=== PATIENT | female | born 1950 | race Caucasian/White ===

== ENCOUNTER 2017-03-15 19:28 | Inpatient (IN) ==
[2017-03-15 20:32] LABS: Basophils % 0.2 % (0.0-0.8); Eosinophils # 0.2 10*3/uL (0.0-0.87); Eosinophils % 1.3 % (0.00-10.9); Hemoglobin 9.9 GM/DL (12.0-16.0); Immature Granulocytes % 0.5 %; Immature Granulocytes Absolute 0.06 #; Lymphocytes # 1.3 10*3/uL (1.4-4.0); Lymphocytes % 11.2 % (21.3-54.2); Mean Corpuscular HGB Conc 31.9 GM/DL (32-36); Mean Corpuscular Hemoglobin 25 PG (27-34); Mean Corpuscular Volume 76.9 FL (87-102); Mean Platelet Volume 9.4 FL (9.6-12.0); Monocytes # 0.8 10*3/uL (0.11-0.8); Monocytes % 7.4 % (1.7-12.7); Neutrophils % 79.4 % (38.7-73.9); Platelet Count 270 T/CUMM (130-400); Red Blood Count 4.03 MC/CUMM (3.8-5.5); Red Cell Distribution Width 18.6 % (9.3-17.3); White Blood Count 11.3 T/CUMM (4-12)
[2017-03-15 20:50] LABS: Alanine Aminotransferase 14 U/L (13-56); Alkaline Phosphatase 81 U/L (45-117); Aspartate Amino Transferase 12 U/L (0-37); Bilirubin,Total < 0.39 MG/DL (0.2-1.0); Blood Urea Nitrogen 26 MG/DL (7-18); Calcium 9.2 MG/DL (8.5-10.1); Glucose 124 MG/DL (74-106); Osmolality,Calculated 284.4 MOS/KG (273-304); Potassium 4.9 MMOL/L (3.5-5.1); Sodium 140 MMOL/L (136-145); Total Protein 6.8 G/DL (6.4-8.3)
[2017-03-15 20:55] LABS: PT Patient Result 10.4 SECS
--- NOTE | 2017-03-15 21:19 | XRay Report ---
Exam: XR chest 2V Indication: Cough, fever Comparison study: Prior chest radiograph 11/18/2016 Findings: Cardiac silhouette is mildly enlarged, similar to prior. Diffuse interstitial prominence likely represent chronic scarring changes appear similar to prior. There has been interval partial resolution of right lung base airspace opacities with development of new patchy opacities which may resent developing infectious/inflammatory infiltrate/pneumonia. There is no pneumothorax. There is no significant pleural effusion. Osseous structures appear stable from prior. Impression: Similar cardiomegaly and chronic interstitial changes with suggestion of developing right basilar infectious/inflammatory infiltrate/pneumonia. PROCEDURE INTERPRETED AT [facility] DEPARTMENT OF RADIOLOGY Final Report Signed by: Jesús Huang
[2017-03-15] MEDS ORDERED: LEVOFLOXACIN INJ 500 MG in PREMIX 1 EACH IV STA (21:21)
[2017-03-15] MEDS ORDERED: SODIUM CHLORIDE 0.9% 1,000 ML IV STA (21:21)
[2017-03-15] MEDS ORDERED: LEVOFLOXACIN INJ 100 ML IV ONE (21:25)
[2017-03-15] MEDS ORDERED: ONDANSETRON 4 MG/2 ML VIAL IV PRN (21:47)
[2017-03-15] MEDS ORDERED: ALBUTEROL/IPRATROPIUM 3 ML NEB RESP TX PRN (21:47)
[2017-03-15] MEDS ORDERED: ACETAMINOPHEN 325 MG TABLET PO PRN ×2 (21:47→21:50)
[2017-03-15] MEDS ORDERED: SODIUM CHLORIDE 0.9% 1,000 ML IV SCH (22:00)
[2017-03-15] MEDS ORDERED: ENOXAPARIN 40 MG/0.4 ML SYRINGE SUBCUT SCH (22:00)
--- NOTE | 2017-03-15 22:01 | Emergency Department Note ---
Jamal Best Brooke, am scribing for, and in the presence of, Maggie Palomo DO 20:18. IStacia Whitney, DO, personally performed the services described in this documentation, ascribed by Desiree Berry in my presence, and it is both accurate and complete . Arrival - Arrival Chief Complaint: Upper Respiratory Stated Complaint: pneumonia right lung ED Nursing Triage Note: c/c body aches, chills, fever, non-productive cough started yesterday. Has hx of pneumonia Mode of Arrival: Wheelchair Limitations: No Limitations Source: Patient, RN Notes Reviewed Time Seen by Provider: 03/15/17 19:57 - History of Present Illness HPI Narrative: Patient is a 66 year old female who presents to the ED with c/o fever, right side pain, and cough that started three days ago. She has a history of pneumonia and says she "thinks" she has it again. Patient says she was hospitalized in September and November with pneumonia. Patient says she did not check her temperature, prior to arrival but her temperature during triage was 98.9. She says the right side pain is located "under my ribs." She denies having any chills, sore throat, rhinorrhea, vomiting, abdominal pain, diarrhea, and dysuria. Patient has an Albuterol inhaler, at home, that she started using yesterday. Patient also has PMHx of HTN, anxiety, ADHD, depression, CVA, thyroid disorder, fibromyalgia, psoriasis, COPD, chronic renal insufficiency, histoplasmosis, sarcodosis, GERD, bowel incontinence, bladder atrophy, osteo- arthritis, and osteopenia. She is not a smoker and does not drink alcohol. Patient says she is taking "life-long 200mg Diflucan abx due to meningitis." Onset (ago): day(s) (3) Allergies/Adverse Reactions: Allergies Allergy/AdvReac Type Severity Reaction Status Date / Time aripiprazole [From Abilify] AdvReac Severe sucicidal Verified 06/27/15 17:06 ideation pregabalin [From Lyrica] AdvReac Swelling Verified 03/15/17 19:44 of Lip/Tongue/Throat Home Medications: Home Medications Medication Instructions Recorded Confirmed Type Fluconazole 200 mg PO DAILY 06/27/15 03/15/17 History Levothyroxine Tab [Synthroid Tab] 100 mcg PO DAILY 06/27/15 03/15/17 History Lovastatin 20 mg PO DAILY W/SUPPER 06/27/15 03/15/17 History Mirtazapine 15 mg PO BEDTIME 06/27/15 03/15/17 History Ropinirole HCl 2 mg PO QAM 06/27/15 03/15/17 History Ropinirole HCl [Requip] 4 mg PO BEDTIME 06/27/15 03/15/17 History buPROPion SR [Wellbutrin Sr] 150 mg PO BID 06/27/15 03/15/17 History clonazePAM [Clonazepam] 1 mg PO BID 06/27/15 03/15/17 History Estradiol Tab [Estrace Tab] 2 mg PO DAILY 07/12/15 03/15/17 History Albuterol Sulfate [Ventolin HFA] 2 puff INH Q4H PRN 11/15/16 03/15/17 History Acetaminophen Tab [Tylenol Tab] 325 mg PO Q4H PRN #0 tablet 11/19/16 03/15/17 Rx Hydrocodone/Acetaminophen 1 each PO TID #20 tablet 11/19/16 03/15/17 Rx [Hydrocodon-Acetaminophn 10-325] Amlodipine Besylate [Amlodipine 5 mg PO DAILY 03/15/17 03/15/17 History Besylate] Biotin 10,000 mcg PO DAILY 03/15/17 03/15/17 History Furosemide Tab [Lasix Tab] 40 mg PO DAILY 03/15/17 03/15/17 History Losartan Potassium 50 mg PO DAILY 03/15/17 03/15/17 History Review of System - Review of System 12 point system: reviewed and no additional remarkable complaints except as stated - Review of System Constitutional: Present: fever. Absent: chills Head/Ears/Nose/Throat: Absent: nasal drainage, sore throat Respiratory: Present: cough. Absent: respiratory distress Gastrointestinal: Absent: abdominal pain, vomiting, diarrhea Genitourinary female: Absent: dysuria Musculoskeletal: Present: other (left side pain- under ribs) Skin: Absent: rash Medical,Surgical,& Family Hx - Medical History Cardio: History of: Hypertension Psychological: History of: Anxiety Disorders, ADHD (Attention), Depression Neurology: History of: Cerebrovascular Accident (2007) Comment Only: Dementia (memory loss from stroke) HEENT: History of: Eye Problem (Reaing glasses), Dental Problems (Full Set Dentures) Endocrine: History of: Thyroid Disorder Rheumatology: History of;: Fibromyalgia, Psoriasis Respiratory: History of: COPD, Pneumonia (2008-ventilator), Respiratory Problems (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 Kay;sarcoidosis) Renal: History of: Renal Problems (chronic renal insufficiency-65% due to antibiotics-Dr. Mendosa) Genitourinary: History of: Bladder Problem (bladder-sudden onset atrophy) Gastrointestinal: History of: GERD, GI Problems (bowel incontinence) No history of: Polyps Musculoskeletal: History of: Musculoskeletal Problems (Arthritis-OA; osteopenia) Other: No history of: Anesthesia Reactions, Cancer - Surgical History Abdominal Surgeries: Surgical HX of: Abdominal Surgery, Colonoscopy Reproductive Surgeries: Surgical HX of;: Breast Surgery (Rt Breast benign; watching lumb lt breast), Hysterectomy (Partial) Orthopedic Surgeries: Surgical HX of;: Total Knee Replacement - Family History Family History: Reports;: Family Cancer (Brother-Lung/bone/colon), Family Diabetes (Mother/brother), Family Heart Disease (Father), Family Hypertension ( Mother/Brother), Family Stroke (Grandfather) - Social History Smoking Status: Never smoker Frequency of Alcohol Use: None Type of Drug Use: None Exam Vital Signs: Vital Signs Temperature 98.9 F 03/15/17 19:37 Pulse Rate 94 H 03/15/17 19:37 Respiratory Rate 18 03/15/17 19:37 Blood Pressure 110/53 03/15/17 19:37 O2 Sat by Pulse Oximetry 99 03/15/17 19:37 - General General appearance: alert, in no apparent distress - Head Head exam: Present: atraumatic, normocephalic - Eye Eye exam: Present: normal appearance, PERRL, EOMI - ENT ENT exam: Present: normal exam - Neck Neck exam: Present: normal inspection - Chest Chest inspection: Present: normal inspection, symmetric chest wall rise - Respiratory Respiratory exam: Present: wheezes (mild- more on the right than left) - Cardiovascular Cardiovascular exam: Present: regular rate, normal rhythm, normal heart sounds - Abdominal Exam Abdominal exam: Present: soft, tenderness (Positive RUQ pain). Absent: distention - Extremities Exam Extremities exam: Present: normal inspection - Back Exam Back exam: Present: normal inspection - Neurological Exam Neurological exam: Present: alert, oriented X3 - Psychiatric Psychiatric exam: Present: normal affect, normal mood - Skin Skin exam: Present: warm, dry, intact, normal color, other (Feels warm-feverish) Course Course Narrative: initially thought that despite infiltrates would attempt to send home with antibiotics, however upon further evaluation of lab findings pt has GINA with Cr 1.6 that was not there previously and pt just looks sick. Will call hospitalist to admit while giving 1L bolus and levaquin IV. Results - Labs CBC & BMP: 03/15/17 20:18 03/15/17 20:18 Lab Results: I have reviewed the patients labs Labs: Laboratory Tests 03/15/17 03/15/17 03/15/17 20:18 20:18 20:18 WBC 11.3 RBC 4.03 Hgb 9.9 L Hct 31.0 L MCV 76.9 L MCH 25 L MCHC 31.9 L RDW 18.6 H Plt Count 270 MPV 9.4 L Neut % (Auto) 79.4 H Lymph % (Auto) 11.2 L Moody % (Auto) 7.4 Eos % (Auto) 1.3 Baso % (Auto) 0.2 Neut # (Auto) 9.0 H Lymph # (Auto) 1.3 L Moody # (Auto) 0.8 Eos # (Auto) 0.2 Baso # (Auto) 0.0 Immature Gran % 0.5 Nucleated RBC % 0.0 Immature Gran # 0.06 Nucleated RBCs # 0.00 INR 1.0 PT Patient/Control Mix 10.4 Sodium 140 Potassium 4.9 Chloride 106 Carbon Dioxide 27 Anion Gap 11.9 BUN 26 H Creatinine 1.60 H GFR Calculation 35 BUN/Creatinine Ratio 16.00 Glucose 124 H Calculated Osmolality 284.4 Calcium 9.2 Total Bilirubin < 0.39 AST 12 ALT 14 Alkaline Phosphatase 81 Total Protein 6.8 Albumin 3.0 L Globulin 3.8 H Albumin/Globulin Ratio 0.7 L - Diagnostic Findings Procedure: Chest x-ray: image reviewed by me (bilateral infiltrates) Disposition Clinical Impression: Pneumonia, GINA (acute kidney injury) Case discussed with: patient Disposition: Still a Patient Condition: Stable
--- NOTE | 2017-03-15 22:06 | Hospitalist History & Physical ---
Assessment and Plan (1) History of meningitis Status: Acute Current Visit: Yes (2) GINA (acute kidney injury) Status: Acute Current Visit: Yes (3) Pneumonia Status: Acute Current Visit: Yes (4) HTN (hypertension) Status: Acute Current Visit: No (5) Hypothyroidism Status: Acute Assessment and plan: Patient has recurrent pneumonias. We will start IV antibiotics draw blood cultures and breathing treatments as needed. Continue home meds as appropriate. She says her radio officer is Dr. Tate I will consult him for his evaluation of this patient. Repeat labs in the morning. Hopefully her creatinine will return to its baseline. Current Visit: No History of Present Illness Chief complaint: Cough and shortness of breath History of present illness: Ms. Carey is a 66 year old female with past medical history of current pneumonia , stroke, history of meningitis, who presents to our hospital with a chief complaint of cough and fever. She reports to me that the symptoms started 2 days ago. She relates a history of recurrent pneumonia and thought that she had it again. This was confirmed on x-ray. She said that her fever started today and that she came up to our hospital for further evaluation. She says that she has been having some right-sided pain under her ribs. I was consulted to admit her through the emergency room. Home Medications Medication Instructions Recorded Confirmed Type Fluconazole 200 mg PO DAILY 06/27/15 03/15/17 History Levothyroxine Tab [Synthroid Tab] 100 mcg PO DAILY 06/27/15 03/15/17 History Lovastatin 20 mg PO DAILY W/SUPPER 06/27/15 03/15/17 History Mirtazapine 15 mg PO BEDTIME 06/27/15 03/15/17 History Ropinirole HCl 2 mg PO QAM 06/27/15 03/15/17 History Ropinirole HCl [Requip] 4 mg PO BEDTIME 06/27/15 03/15/17 History buPROPion SR [Wellbutrin Sr] 150 mg PO BID 06/27/15 03/15/17 History clonazePAM [Clonazepam] 1 mg PO BID 06/27/15 03/15/17 History Estradiol Tab [Estrace Tab] 2 mg PO DAILY 07/12/15 03/15/17 History Albuterol Sulfate [Ventolin HFA] 2 puff INH Q4H PRN 11/15/16 03/15/17 History Acetaminophen Tab [Tylenol Tab] 325 mg PO Q4H PRN #0 tablet 11/19/16 03/15/17 Rx Hydrocodone/Acetaminophen 1 each PO TID #20 tablet 11/19/16 03/15/17 Rx [Hydrocodon-Acetaminophn 10-325] Amlodipine Besylate [Amlodipine 5 mg PO DAILY 03/15/17 03/15/17 History Besylate] Biotin 10,000 mcg PO DAILY 03/15/17 03/15/17 History Furosemide Tab [Lasix Tab] 40 mg PO DAILY 03/15/17 03/15/17 History Losartan Potassium 50 mg PO DAILY 03/15/17 03/15/17 History Allergies Allergy/AdvReac Type Severity Reaction Status Date / Time aripiprazole [From Abilify] AdvReac Severe sucicidal Verified 06/27/15 17:06 ideation pregabalin [From Lyrica] AdvReac Swelling Verified 03/15/17 19:44 of Lip/Tongue/Throat Medical,Surgical,& Family Hx - Medical History Cardio: History of: Hypertension Psychological: History of: Anxiety Disorders, ADHD (Attention), Depression Neurology: History of: Cerebrovascular Accident (2007) Comment Only: Dementia (memory loss from stroke) HEENT: History of: Eye Problem (Reaing glasses), Dental Problems (Full Set Dentures) Endocrine: History of: Thyroid Disorder Rheumatology: History of;: Fibromyalgia, Psoriasis Respiratory: History of: COPD, Pneumonia (2007-ventilator), Respiratory Problems (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 Kay;sarcoidosis) Renal: History of: Renal Problems (chronic renal insufficiency-65% due to antibiotics-Dr. Mendosa) Genitourinary: History of: Bladder Problem (bladder-sudden onset atrophy) Gastrointestinal: History of: GERD, GI Problems (bowel incontinence) No history of: Polyps Musculoskeletal: History of: Musculoskeletal Problems (Arthritis-OA; osteopenia) Other: No history of: Anesthesia Reactions, Cancer - Surgical History Abdominal Surgeries: Surgical HX of: Abdominal Surgery, Colonoscopy Reproductive Surgeries: Surgical HX of;: Breast Surgery (Rt Breast benign; watching lumb lt breast), Hysterectomy (Partial) Orthopedic Surgeries: Surgical HX of;: Total Knee Replacement - Family History Family History: Reports;: Family Cancer (Brother-Lung/bone/colon), Family Diabetes (Mother/brother), Family Heart Disease (Father), Family Hypertension ( Mother/Brother), Family Stroke (Grandfather) - Social History Smoking Status: Never smoker Frequency of Alcohol Use: None Type of Drug Use: None 12 point system: reviewed and no additional remarkable complaints except as stated Exam - Constitutional Vitals: Period Temp Pulse Resp BP Sys/Young Pulse Ox Last 24 Hr 98.9 F-98.9 F 94-94 18-18 110-110/52-53 99 - General General appearance: alert, in no apparent distress - Head Head exam: Present: atraumatic, normocephalic - Eye Eye exam: Present: normal appearance, PERRL, EOMI - ENT ENT exam: Present: normal exam - Neck Neck exam: Present: normal inspection - Chest Chest inspection: Present: normal inspection, symmetric chest wall rise - Respiratory Respiratory exam: Present: Mild wheezing on the right - Cardiovascular Cardiovascular exam: Present: regular rate, normal rhythm, normal heart sounds - Abdominal Exam Abdominal exam: Present: soft, non-tender - Extremities Exam Extremities exam: Present: normal inspection - Back Exam Back exam: Present: normal inspection - Neurological Exam Neurological exam: Present: alert, oriented X3 - Psychiatric Psychiatric exam: Present: normal affect, normal mood - Skin Skin exam: Present: warm, dry, intact, normal color, Results - Labs CBC & BMP: 03/15/17 20:18 03/15/17 20:18
[2017-03-15] MEDS: MIRTAZAPINE 15 MG TABLET PO SCH (22:59)
[2017-03-15] MEDS: rOPINIRole 4 MG TABLET PO SCH (22:59)
[2017-03-16 02:14] LABS: Basophils % 0.2 % (0.0-0.8); Eosinophils # 0.1 10*3/uL (0.0-0.87); Hematocrit 29.8 VOL% (35.7-47.0); Hemoglobin 9.4 GM/DL (12.0-16.0); Immature Granulocytes % 0.4 %; Immature Granulocytes Absolute 0.04 #; Lymphocytes # 1.5 10*3/uL (1.4-4.0); Lymphocytes % 15.9 % (21.3-54.2); Mean Corpuscular HGB Conc 31.5 GM/DL (32-36); Mean Corpuscular Hemoglobin 24 PG (27-34); Mean Corpuscular Volume 77.2 FL (87-102); Mean Platelet Volume 9.6 FL (9.6-12.0); Monocytes # 0.8 10*3/uL (0.11-0.8); Monocytes % 8.8 % (1.7-12.7); Neutrophils % 73.7 % (38.7-73.9); Platelet Count 250 T/CUMM (130-400); Red Blood Count 3.86 MC/CUMM (3.8-5.5); Red Cell Distribution Width 18.6 % (9.3-17.3); White Blood Count 9.5 T/CUMM (4-12)
[2017-03-16 03:05] LABS: Albumin 2.7 G/DL (3.4-5.0); Bilirubin,Total 0.5 MG/DL (0.2-1.0); Calcium 8.2 MG/DL (8.5-10.1); Osmolality,Calculated 285.1 MOS/KG (273-304); Potassium 4.7 MMOL/L (3.5-5.1); Total Protein 5.5 G/DL (6.4-8.3)
[2017-03-16] MEDS: LEVOTHYROXINE 100 MCG TABLET PO SCH (08:25)
[2017-03-16] MEDS: clonazePAM 0.5 MG TABLET PO SCH ×2 (08:25→20:23)
[2017-03-16] MEDS: buPROPion SR 150 MG TABLET PO SCH ×2 (08:25→20:23)
[2017-03-16] MEDS: FLUCONAZOLE 200 MG TABLET PO SCH (08:25)
[2017-03-16] MEDS: PANTOPRAZOLE 40 MG TABLET PO SCH (08:26)
[2017-03-16] MEDS: rOPINIRole 1 MG TABLET PO SCH (08:27)
[2017-03-16] MEDS ORDERED: ESTRADIOL 1 MG TABLET PO SCH (09:00)
[2017-03-16] MEDS ORDERED: FUROSEMIDE 40 MG/4 ML VIAL IV SCH (09:00)
[2017-03-16] MEDS ORDERED: LOSARTAN 50 MG TABLET PO SCH (09:00)
[2017-03-16] MEDS ORDERED: FUROSEMIDE 40 MG TABLET PO SCH (09:00)
[2017-03-16] MEDS ORDERED: amLODIPine 5 MG TABLET PO SCH (09:00)
--- NOTE | 2017-03-16 10:34 | Pulmonology Consult Note ---
Assessment and Plan (1) Sarcoidosis Status: Acute Assessment and plan: Remote history of sarcoid treated with prednisone for 6 months and felt to be in remission for at least 15 years. Will check an JAZMINE level but doubt she has recurrence. Current Visit: No (2) Histoplasmosis Status: Acute Assessment and plan: Needle biopsy of left long about 5 years ago showed histoplasma in the biopsy. Apparently was felt to be old disease and not treated at that time. Current Visit: No (3) Pneumonia Status: Acute Assessment and plan: Symptomatically it appears that she has a right middle and lower lobe bronchopneumonia. Agree with empiric antibiotics. I will likely plan bronchoscopy in a couple of days. Current Visit: Yes (4) History of meningitis Status: Acute Assessment and plan: Was treated for cryptococcal meningitis about 3 years ago. Again had problems with immunosuppression at that time from medications for psoriasis. Current Visit: Yes History of Present Illness Chief complaint: Fever right pleuritic pain cough History of present illness: Ms. Carey is a 66 year old female who has a history of sarcoid about 15 years ago treated for 6 months. Had a pulmonary nodule in the left lung with a biopsy about 5 years ago showing histoplasmosis but it was not treated was felt to be old disease. She also has had cryptococcal meningitis 3 years ago. She had been on immunosuppressive medications for psoriasis which she is off now. She comes in now with a cough and right-sided pleuritic pain white foamy sputum and fever. She is not a smoker. Home Medications Medication Instructions Recorded Confirmed Type Fluconazole 200 mg PO DAILY 06/27/15 03/15/17 History Levothyroxine Tab [Synthroid Tab] 100 mcg PO DAILY 06/27/15 03/15/17 History Lovastatin 20 mg PO DAILY W/SUPPER 06/27/15 03/15/17 History Mirtazapine 15 mg PO BEDTIME 06/27/15 03/15/17 History Ropinirole HCl 2 mg PO QAM 06/27/15 03/15/17 History Ropinirole HCl [Requip] 4 mg PO BEDTIME 06/27/15 03/15/17 History buPROPion SR [Wellbutrin Sr] 150 mg PO BID 06/27/15 03/15/17 History clonazePAM [Clonazepam] 1 mg PO BID 06/27/15 03/15/17 History Estradiol Tab [Estrace Tab] 2 mg PO DAILY 07/12/15 03/15/17 History Albuterol Sulfate [Ventolin HFA] 2 puff INH Q4H PRN 11/15/16 03/15/17 History Hydrocodone/Acetaminophen 1 each PO TID #20 tablet 11/19/16 03/15/17 Rx [Hydrocodon-Acetaminophn 10-325] Amlodipine Besylate [Amlodipine 5 mg PO DAILY 03/15/17 03/15/17 History Besylate] Biotin 10,000 mcg PO DAILY 03/15/17 03/15/17 History Esomeprazole Magnesium 1 each PO DAILY 03/15/17 03/15/17 History [Esomeprazole] Losartan Potassium 50 mg PO DAILY 03/15/17 03/15/17 History Allergies Allergy/AdvReac Type Severity Reaction Status Date / Time aripiprazole [From Abilify] AdvReac Severe sucicidal Verified 06/27/15 17:06 ideation pregabalin [From Lyrica] AdvReac Swelling Verified 03/15/17 19:44 of Lip/Tongue/Throat - Constitutional Constitutional: Present: fever(s) - Respiratory Respiratory: Present: cough, dyspnea, pain on inspiration Exam (Pulmonay) H&P - Constitutional Vitals: Period Temp Pulse Resp BP Sys/Young Pulse Ox Last 24 Hr 98.3 F-100.2 F 74-94 18-74 90-116/40-54 92-99 Exam: Patient is alert. Maximum temperature 99.4. Pupils react to light. Throat is clear. Neck supple no bruits. Chest reveals some rhonchi and musical rhonchi over the right lower lobe and right middle lobe. Heart normal rate rhythm no murmurs no rubs or gallops. Abdomen soft nontender no masses. Extremities no clubbing cyanosis or edema. Calves nontender. Medical,Surgical,& Family Hx - Medical History Cardio: History of: Hypertension Psychological: History of: Anxiety Disorders, ADHD (Attention), Depression Neurology: History of: Cerebrovascular Accident (2007) Comment Only: Dementia (memory loss from stroke) HEENT: History of: Eye Problem (Reaing glasses), Dental Problems (Full Set Dentures) Endocrine: History of: Thyroid Disorder Rheumatology: History of;: Fibromyalgia, Psoriasis Respiratory: History of: COPD, Pneumonia (2008-ventilator), Respiratory Problems (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 Kay;sarcoidosis) Renal: History of: Renal Problems (chronic renal insufficiency-65% due to antibiotics-Dr. Mendosa) Genitourinary: History of: Bladder Problem (bladder-sudden onset atrophy) Gastrointestinal: History of: GERD, GI Problems (bowel incontinence) No history of: Polyps Musculoskeletal: History of: Musculoskeletal Problems (Arthritis-OA; osteopenia) Other: No history of: Anesthesia Reactions, Cancer - Surgical History Abdominal Surgeries: Surgical HX of: Abdominal Surgery, Colonoscopy Reproductive Surgeries: Surgical HX of;: Breast Surgery (Rt Breast benign; watching lumb lt breast), Hysterectomy (Partial) Orthopedic Surgeries: Surgical HX of;: Total Knee Replacement - Family History Family History: Reports;: Family Cancer (Brother-Lung/bone/colon), Family Diabetes (Mother/brother), Family Heart Disease (Father), Family Hypertension ( Mother/Brother), Family Stroke (Grandfather) - Social History Smoking Status: Never smoker Frequency of Alcohol Use: None Type of Drug Use: None Results - Labs CBC & BMP: 03/16/17 01:43 03/16/17 01:43 Lab Results: I have reviewed the past 24 hour labs - Diagnostic Findings Procedure: Chest x-ray: image reviewed by me (Infiltrate in right middle and lower lobes. Similar location to previous infiltrates.)
[2017-03-16] MEDS: ALBUTEROL/IPRATROPIUM 3 ML NEB RESP TX SCH ×4 (11:30→23:51)
[2017-03-16] MEDS ORDERED: LOVASTATIN 20 MG TABLET ONE (13:48)
[2017-03-16] MEDS: LOVASTATIN 20 MG TABLET PO SCH (15:59)
--- NOTE | 2017-03-16 16:36 | Infectious Disease Consult ---
Assessment and Plan (1) Pneumonia Status: Acute Assessment and plan: Pneumonia involving right lung lower lobe. Likely community-acquired. Recommendations: Agree with empiric levofloxacin. If able to get sample, we she should do Gram stain and culture on sputum. Otherwise bronchoscopy may be needed in addition to regular Gram stain and culture should do fungal and AFB stains and cultures. Thank you very much for the consult. Will follow. Current Visit: Yes (2) ARF (acute renal failure) Status: Acute Assessment and plan: 's improving since admission. Continue to monitor. Current Visit: No (3) HTN (hypertension) Status: Acute Current Visit: No (4) History of meningitis Status: Acute Assessment and plan: The meningitis is due to cryptococcus. She will remain on secondary prophylaxis with fluconazole. Current Visit: Yes History of Present Illness Chief complaint: Pneumonia History of present illness: Ms. Carey is a 66 year old female Who has a history of recurring pneumonia presented yesterday with onset of fever on the night before admission. She also noted at the same time pleuritic right-sided chest pain. She is having mild cough but no sputum production. Because of her history of recurrent pneumonia she presented to the hospital and a new right-sided infiltrate was noted in the lung. The patient was started on empiric antibiotic therapy and says she feels a bit better today. The patient have seen in the past because of her history of cryptococcal meningitis. She was on immunosuppressive so sometime for psoriatic arthritis and then got meningitis due to cryptococcus. She was treated in hospital for 5 months she says and then has been on suppressive therapy with fluconazole for the past 3 years. 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 Home Medications Medication Instructions Recorded Confirmed Type Fluconazole 200 mg PO DAILY 06/27/15 03/15/17 History Levothyroxine Tab [Synthroid Tab] 100 mcg PO DAILY 06/27/15 03/15/17 History Lovastatin 20 mg PO DAILY W/SUPPER 06/27/15 03/15/17 History Mirtazapine 15 mg PO BEDTIME 06/27/15 03/15/17 History Ropinirole HCl 2 mg PO QAM 06/27/15 03/15/17 History Ropinirole HCl [Requip] 4 mg PO BEDTIME 06/27/15 03/15/17 History buPROPion SR [Wellbutrin Sr] 150 mg PO BID 06/27/15 03/15/17 History clonazePAM [Clonazepam] 1 mg PO BID 06/27/15 03/15/17 History Estradiol Tab [Estrace Tab] 2 mg PO DAILY 07/12/15 03/15/17 History Albuterol Sulfate [Ventolin HFA] 2 puff INH Q4H PRN 11/15/16 03/15/17 History Hydrocodone/Acetaminophen 1 each PO TID #20 tablet 11/19/16 03/15/17 Rx [Hydrocodon-Acetaminophn 10-325] Amlodipine Besylate [Amlodipine 5 mg PO DAILY 03/15/17 03/15/17 History Besylate] Biotin 10,000 mcg PO DAILY 03/15/17 03/15/17 History Esomeprazole Magnesium 1 each PO DAILY 03/15/17 03/15/17 History [Esomeprazole] Losartan Potassium 50 mg PO DAILY 03/15/17 03/15/17 History Allergies Allergy/AdvReac Type Severity Reaction Status Date / Time aripiprazole [From Abilify] AdvReac Severe sucicidal Verified 06/27/15 17:06 ideation pregabalin [From Lyrica] AdvReac Swelling Verified 03/15/17 19:44 of Lip/Tongue/Throat 12 point system: reviewed and no additional remarkable complaints except as stated (Per HPI) Medical,Surgical,& Family Hx - Medical History Cardio: History of: Hypertension Psychological: History of: Anxiety Disorders, ADHD (Attention), Depression Neurology: History of: Cerebrovascular Accident (2007) Comment Only: Dementia (memory loss from stroke) HEENT: History of: Eye Problem (Reaing glasses), Dental Problems (Full Set Dentures) Endocrine: History of: Thyroid Disorder Rheumatology: History of;: Fibromyalgia, Psoriasis Respiratory: History of: COPD, Pneumonia (2008-ventilator), Respiratory Problems (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 Kay;sarcoidosis) Renal: History of: Renal Problems (chronic renal insufficiency-65% due to antibiotics-Dr. Mendosa) Genitourinary: History of: Bladder Problem (bladder-sudden onset atrophy) Gastrointestinal: History of: GERD, GI Problems (bowel incontinence) No history of: Polyps Musculoskeletal: History of: Musculoskeletal Problems (Arthritis-OA; osteopenia) Other: No history of: Anesthesia Reactions, Cancer - Surgical History Abdominal Surgeries: Surgical HX of: Abdominal Surgery, Colonoscopy Reproductive Surgeries: Surgical HX of;: Breast Surgery (Rt Breast benign; watching lumb lt breast), Hysterectomy (Partial) Orthopedic Surgeries: Surgical HX of;: Total Knee Replacement - Family History Family History: Reports;: Family Cancer (Brother-Lung/bone/colon), Family Diabetes (Mother/brother), Family Heart Disease (Father), Family Hypertension ( Mother/Brother), Family Stroke (Grandfather) - Social History Smoking Status: Never smoker Frequency of Alcohol Use: None Type of Drug Use: None Infectious Disease Exam H&P - Constitutional Vitals: Vital Signs Temp Pulse Resp BP Pulse Ox 97.4 F L 69 18 107/53 98 03/16/17 11:18 03/16/17 11:30 03/16/17 11:30 03/16/17 11:18 03/16/17 11:30 Intake and Output 03/16/17 03/16/17 03/16/17 07:59 15:59 23:59 Intake Total 300 / 300 Output Total 600 / 600 Balance -300 / -300 Intake: Oral 300 / 300 Output: Urine 600 / 600 Other: Voiding Method Toilet # Bowel Movements 0 Exam: General: Patient relatively comfortable HEENT: Mucous membranes pink and moist, anicteric acyanotic, JAE, no oropharyngeal exudates Neck: Supple, no thyroid gland enlargement Respiratory system: Breath sounds vesicular, I did not hear any crepitations but occasional wheezes in both bases Cardiovascular: Normal S1 and S2, no murmurs appreciated Abdomen: Normal bowel sounds, soft nontender throughout, no organomegaly or mass Genitourinary: No suprapubic pain or bladder distention Extremities: no edema Skin: No rash Reports - Labs CBC & BMP: 03/16/17 01:43 03/16/17 01:43 Labs: Laboratory Results - last 24 hr 03/15/17 03/15/17 03/15/17 20:18 20:18 20:18 WBC 11.3 RBC 4.03 Hgb 9.9 L Hct 31.0 L MCV 76.9 L MCH 25 L MCHC 31.9 L RDW 18.6 H Plt Count 270 MPV 9.4 L Neut % (Auto) 79.4 H Lymph % (Auto) 11.2 L [place] % (Auto) 7.4 Eos % (Auto) 1.3 Baso % (Auto) 0.2 Neut # (Auto) 9.0 H Lymph # (Auto) 1.3 L [place] # (Auto) 0.8 Eos # (Auto) 0.2 Baso # (Auto) 0.0 Immature Gran % 0.5 Nucleated RBC % 0.0 Immature Gran # 0.06 Nucleated RBCs # 0.00 INR 1.0 PT Patient/Control Mix 10.4 Sodium 140 Potassium 4.9 Chloride 106 Carbon Dioxide 27 Anion Gap 11.9 BUN 26 H Creatinine 1.60 H GFR Calculation 35 BUN/Creatinine Ratio 16.00 Glucose 124 H Calculated Osmolality 284.4 Calcium 9.2 Total Bilirubin < 0.39 AST 12 ALT 14 Alkaline Phosphatase 81 Total Protein 6.8 Albumin 3.0 L Globulin 3.8 H Albumin/Globulin Ratio 0.7 L 03/16/17 03/16/17 01:43 01:43 WBC 9.5 RBC 3.86 Hgb 9.4 L Hct 29.8 L MCV 77.2 L MCH 24 L MCHC 31.5 L RDW 18.6 H Plt Count 250 MPV 9.6 Neut % (Auto) 73.7 Lymph % (Auto) 15.9 L [place] % (Auto) 8.8 Eos % (Auto) 1.0 Baso % (Auto) 0.2 Neut # (Auto) 7.0 Lymph # (Auto) 1.5 [place] # (Auto) 0.8 Eos # (Auto) 0.1 Baso # (Auto) 0.0 Immature Gran % 0.4 Nucleated RBC % 0.0 Immature Gran # 0.04 Nucleated RBCs # 0.00 INR PT Patient/Control Mix Sodium 142 Potassium 4.7 Chloride 108 H Carbon Dioxide 24 Anion Gap 14.7 BUN 21 H Creatinine 1.40 H GFR Calculation 42 BUN/Creatinine Ratio 15.00 Glucose 94 Calculated Osmolality 285.1 Calcium 8.2 L Total Bilirubin 0.50 AST 14 ALT 12 L Alkaline Phosphatase 76 Total Protein 5.5 L Albumin 2.7 L Globulin 2.8 Albumin/Globulin Ratio 0.9 L - Diagnostic Findings Procedure: Chest x-ray: image reviewed by me, report reviewed by me (Infiltrate in the right lower lung)
--- NOTE | 2017-03-16 17:41 | Hospitalist Progress Note ---
Assessment and Plan (1) Community acquired pneumonia Status: Acute Assessment and plan: Chest x-ray shows a right lower lobe pneumonia, continue Levaquin, Dr. Valencia consulted and recommends bronchoscopy. Dr. Tate will do bronchoscopy in a.m. Patient reports a history of histoplasmosis Current Visit: No (2) ARF (acute renal failure) Status: Acute Assessment and plan: more chronic renal failure, chronic stage 3 renal failure Current Visit: No (3) HTN (hypertension) Status: Acute Assessment and plan: blood pressure running low, hold norvasc and losartan Current Visit: No (4) Histoplasmosis Status: Acute Current Visit: No (5) Hypothyroidism Status: Acute Assessment and plan: cont levothyroxine. Current Visit: No Hospitalist: Subjective Interval history: Patient sounded wet this morning when I saw her. Dr. Tate was consulted and he actually consulted Dr. Valencia. Dr. Valencia feels that she needs a bronchoscopy with antifungal cx. Have spoke with Dr. Tate and he will do the bronchoscopy in the morning. Patient reports a history of histoplasmosis. Currently she is only on Levaquin. at bedside. I heplocked her fluids. Blood pressure low, will hold norvasc and losartan Exam - Constitutional Vitals: Period Temp Pulse Resp BP Sys/Young Pulse Ox Last 24 Hr 97.4 F-100.2 F 69-94 18-74 90-116/40-54 92-99 Exam: Heart Rate-[RRR] Lungs-[bilateral rhonchi, crackles] GI-[+bs soft, NT] Ext-[no edema] Neuro [Motor 5/5], [alert and oriented times 3] psych [normal mood and affect] General [no acute distress] Results - Labs CBC & BMP: 03/16/17 01:43 03/16/17 01:43 Lab Results: I have reviewed the past 24 hour labs - Diagnostic Findings Procedure: Chest x-ray: report reviewed by me (Right lower lobe pneumonia)
[2017-03-16] MEDS: LEVOFLOXACIN INJ 500 MG in PREMIX 1 EACH IV SCH (18:37)
[2017-03-16] MEDS: rOPINIRole 4 MG TABLET PO SCH (20:23)
[2017-03-16] MEDS: MIRTAZAPINE 15 MG TABLET PO SCH (20:24)
[2017-03-16] MEDS ORDERED: LEVOFLOXACIN INJ 250 MG in PREMIX 1 EACH IV SCH (21:00)
[2017-03-17 02:06] LABS: Apearance,Urine CLOUDY (Clear); Bacteria,Urine Moderate /HPF (Few); Bilirubin,Urine Negative (Negative); Blood, Urine Negative (Negative); Glucose,Urine (UA) Negative (Negative); Ketones,Urine Negative (Negative); Mucus,Urine Occasional /LPF (Occasional); Nitrite,Urine Negative (Negative); Protein,Urine Negative; Squamous Epithelial Cell,Urine Occasional /HPF (0-10); Urine Color Red (Yellow); Urine Specific Gravity 1.006 (1.001-1.035); Urine Urobilinogen < 2.0 EU/DL (0.2-1.0); WBC,Urine <1 /HPF (0-6)
[2017-03-17] MEDS: ALBUTEROL/IPRATROPIUM 3 ML NEB RESP TX SCH ×6 (04:04→23:11)
[2017-03-17 06:32] LABS: Basophils % 0.2 % (0.0-0.8); Eosinophils # 0.2 10*3/uL (0.0-0.87); Eosinophils % 3.4 % (0.00-10.9); Hematocrit 27.8 VOL% (35.7-47.0); Hemoglobin 8.7 GM/DL (12.0-16.0); Immature Granulocytes % 0.5 %; Immature Granulocytes Absolute 0.03 #; Lymphocytes # 1.3 10*3/uL (1.4-4.0); Lymphocytes % 21.8 % (21.3-54.2); Mean Corpuscular HGB Conc 31.3 GM/DL (32-36); Mean Corpuscular Hemoglobin 24 PG (27-34); Mean Corpuscular Volume 77.4 FL (87-102); Mean Platelet Volume 9.6 FL (9.6-12.0); Monocytes # 0.6 10*3/uL (0.11-0.8); Monocytes % 9.7 % (1.7-12.7); Neutrophils # 3.9 10*3/uL (1.4-7.4); Neutrophils % 64.4 % (38.7-73.9); Platelet Count 236 T/CUMM (130-400); Red Blood Count 3.59 MC/CUMM (3.8-5.5); Red Cell Distribution Width 18.6 % (9.3-17.3)
[2017-03-17] MEDS ORDERED: MEPERIDINE 50 MG/1 ML VIAL IM ONE (07:00)
[2017-03-17] MEDS ORDERED: PROMETHAZINE 25 MG/1 ML VIAL IM ONE (07:00)
[2017-03-17] MEDS ORDERED: MIDAZOLAM 2 MG/2 ML VIAL IV ONE (07:00)
[2017-03-17] MEDS ORDERED: LIDOCAINE 1% 20 ML VIAL MISC INJ ONE (07:00)
[2017-03-17 07:03] LABS: Calcium 8.7 MG/DL (8.5-10.1); Potassium 3.9 MMOL/L (3.5-5.1)
--- NOTE | 2017-03-17 07:10 | Pulmonology Progress Note ---
Pulmonary - PN: Subj Interval history: This 66-year-old white female has recurrent right middle lobe pneumonia. She has a remote history of sarcoid. She has had 2 different fungal infections. Infectious disease has seen her yesterday and asked that we get some samples from along. I will proceed with bronchoscopy this morning. I discussed the procedure and complications with the patient this morning. Exam (Progress Note) - Constitutional Vitals: Period Temp Pulse Resp BP Sys/Young Pulse Ox Last 24 Hr 97.4 F-98.7 F 66-90 16-22 91-114/47-57 96-100 Exam: Patient's alert oriented vital signs normal. Pupils react to light. Throat is clear. Neck supple no bruits. Chest reveals some rhonchi over the right middle lobe. Heart normal rate rhythm no murmurs. Abdomen soft no masses. Extremities no clubbing cyanosis edema. Calves nontender. Results - Labs CBC & BMP: 03/17/17 06:08 03/17/17 06:08 Lab Results: I have reviewed the past 24 hour labs Assessment and Plan (1) Sarcoidosis Status: Acute Assessment and plan: Remote history of sarcoid treated with prednisone for 6 months and felt to be in remission for at least 15 years. Will check an JAZMINE level but doubt she has recurrence. 03/17/2017 remote history of sarcoid. Probably not active. Current Visit: No (2) Histoplasmosis Status: Acute Assessment and plan: Needle biopsy of left long about 5 years ago showed histoplasma in the biopsy. Apparently was felt to be old disease and not treated at that time. 03/17/2017 remote history of histoplasmosis. Current Visit: No (3) Pneumonia Status: Acute Assessment and plan: Symptomatically it appears that she has a right middle and lower lobe bronchopneumonia. Agree with empiric antibiotics. I will likely plan bronchoscopy in a couple of days. 03/17/2017 recurrent right middle lobe pneumonia. Plan bronchoscopy to see what the etiologic agent is. Current Visit: Yes (4) History of meningitis Status: Acute Assessment and plan: Was treated for cryptococcal meningitis about 3 years ago. Again had problems with immunosuppression at that time from medications for psoriasis. Current Visit: Yes
[2017-03-17] MEDS ORDERED: MIDAZOLAM 2 MG/2 ML VIAL ONE (07:13)
--- NOTE | 2017-03-17 07:54 | Operative Note ---
Date of procedure: 03/17/17 (Fiberoptic bronchoscopy with brushings from right middle lobe and right lower lobe) Pre-op diagnosis: Recurrent right middle and lower lobe pneumonia, history of histoplasmosis Post-op diagnosis: same Procedure: Patient was given preoperative medication intramuscularly on the floor. I discussed the procedure with her prior to that. She was brought to the endoscopy suite. An appropriate timeout was taken to be sure we were dealing with Ghazal Carey. Topical anesthesia was applied with Xylocaine in the nose and nasopharynx. 3 L of nasal oxygen was placed in the left naris. Patient was given 2 mg of Versed intravenously to the point of sedation. The fiberoptic bronchoscope was introduced via the right naris. The vocal cords were identified and noted to function normally with phonation. After further topical anesthesia the trachea was entered and was free of lesions. The honey was sharp. The left lung was carefully inspected to the subsegmental level with no lesions seen. There was a slightly thickened divider between the anterior and posterior segments of the left upper lobe. On the right side the right upper lobe was normal. The right middle lobe was narrowed from front to back. I was not able to see the divisions of the right middle lobe. Brushings were obtained from 3 different locations in the right middle lobe. 1 of the brushings will be sent for Gram stain AFB stain and fungal stain and cultures. The other 2 will be sent for cytology. There was mild bleeding which cleared easily with saline irrigation. In the right lower lobe the anterior basilar segment was somewhat narrowed with purulent secretions. Saline irrigation was undertaken to remove the purulent secretions. Brushings were then obtained from the anterior basilar segment. Minimal bleeding following that cleared with saline irrigation. Additional bronchial washings were obtained. The bronchoscope was removed. Patient returned to her room in stable condition. I discussed the case with the patient's on the phone. Anesthesia: conscious sedation Surgeon / Physician: Devante Tate Estimated blood loss: minimal Specimens: other (Bronchial washings and brushings for cultures and cytology) Condition: stable Disposition: floor Results - Labs CBC & BMP: 03/17/17 06:08 03/17/17 06:08 Discharge Plan - Discharge Medications No Action Fluconazole 200 mg PO DAILY buPROPion SR [Wellbutrin Sr] 150 mg PO BID Levothyroxine Tab [Synthroid Tab] 100 mcg PO DAILY Ropinirole HCl 2 mg PO QAM Ropinirole HCl [Requip] 4 mg PO BEDTIME Mirtazapine 15 mg PO BEDTIME clonazePAM [Clonazepam] 1 mg PO BID Lovastatin 20 mg PO DAILY W/SUPPER Estradiol Tab [Estrace Tab] 2 mg PO DAILY Albuterol Sulfate [Ventolin HFA] 2 puff INH Q4H PRN PRN Reason: Shortness Of Breath/Wheezing Amlodipine Besylate [Amlodipine Besylate] 5 mg PO DAILY Biotin 10,000 mcg PO DAILY Hydrocodone/Acetaminophen [Hydrocodon-Acetaminophn 10-325] 1 each PO TID #20 tablet Losartan Potassium 50 mg PO DAILY Esomeprazole Magnesium [Esomeprazole] 1 each PO DAILY - Follow Up or Referral - Forms/Instructions
--- NOTE | 2017-03-17 09:21 | Infectious Disease Progress ---
Assessment and Plan (1) Pneumonia Status: Acute Assessment and plan: Pneumonia involving right lung lower lobe. Likely community-acquired. But she has had history of histoplasmoma pulmonary infection in the past. Recommendations: Continue empiric levofloxacin. Follow-up on BAL culture sent off today. I ordered urine histoplasma antigen. Current Visit: Yes (2) ARF (acute renal failure) Status: Acute Assessment and plan: 's improving since admission. Continue to monitor. 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 She will remain on secondary prophylaxis with fluconazole. Current Visit: Yes Infectious Disease - PN: Subj Interval history: Patient coughing a bit more today, whitish thin sputum. She has not had fever. No nausea vomiting or diarrhea. Had bronchoscopy today. Infectious Disease Exam (PN) - Constitutional Vitals: Temp Pulse Resp BP Pulse Ox 97.6 F 79 16 110/65 97 03/17/17 03:52 03/17/17 08:03 03/17/17 08:03 03/17/17 08:03 03/17/17 08:03 Exam: General appearance: Episodic coughing - Eye Eye exam: Present: EOMI. no icterus Pupils: Present: JAE - ENT ENT exam: no oral exudates - Respiratory Respiratory exam: vesicular BS, no crepitations but diffuse inspiratory wheezes heard - Cardiovascular Cardiovascular exam: regular rate and rhythm, no murmurs - GI/Abdominal GI/Abdominal exam: normal bowel sounds, soft, non-tender, no organomegaly or mass - Extremities Exam Extremities exam: no edema - Skin Skin exam: no rash Results - Labs CBC & BMP: 03/17/17 06:08 03/17/17 06:08 Lab Results: I have reviewed the past 24 hour labs
[2017-03-17] MEDS: PANTOPRAZOLE 40 MG TABLET PO SCH (09:42)
[2017-03-17] MEDS: clonazePAM 0.5 MG TABLET PO SCH ×2 (09:42→20:50)
[2017-03-17] MEDS: buPROPion SR 150 MG TABLET PO SCH ×2 (09:42→20:50)
[2017-03-17] MEDS: FLUCONAZOLE 200 MG TABLET PO SCH (09:42)
[2017-03-17] MEDS: LEVOTHYROXINE 100 MCG TABLET PO SCH (09:42)
[2017-03-17] MEDS: rOPINIRole 1 MG TABLET PO SCH (09:42)
--- NOTE | 2017-03-17 16:00 | Hospitalist Progress Note ---
Assessment and Plan (1) Community acquired pneumonia Status: Acute Assessment and plan: Dr. Tate and Dr. Valencia following. Urine for histoplasma antigen order. Awaiting results of bronchoscopy Current Visit: No (2) ARF (acute renal failure) Status: Acute Assessment and plan: chronic stage 3 renal failure Current Visit: No (3) HTN (hypertension) Status: Acute Assessment and plan: blood continues to run low normal saline bolus 500 cc will hold Requip. Current Visit: No (4) Histoplasmosis Status: Acute Assessment and plan: Bronchoscopy cultures pending Current Visit: No (5) Hypothyroidism Status: Acute Assessment and plan: cont levothyroxine. Current Visit: No Hospitalist: Subjective Interval history: Patient feeling better today, patient had a bronchoscopy today and tolerated it well. Exam - Constitutional Vitals: Period Temp Pulse Resp BP Sys/Young Pulse Ox Last 24 Hr 97.6 F-98.7 F 65-90 11-20 84-122/49-72 95-100 Exam: Heart Rate-[RRR] Lungs-[clear few wheezes GI-[+bs soft, NT] Ext-[no edema] Neuro [Motor 5/5], [alert and oriented times 3] psych [normal mood and affect] General [no acute distress] Results - Labs CBC & BMP: 03/17/17 06:08 03/17/17 06:08 Lab Results: I have reviewed the past 24 hour labs Labs: Bronchoscopy acid-fast bacilli negative, Gram stain negative, no fungal elements seen, blood cultures 2 negative
[2017-03-17] MEDS: LOVASTATIN 20 MG TABLET PO SCH (16:02)
[2017-03-17] MEDS ORDERED: SODIUM CHLORIDE 0.9% 500 ML IV ONE (16:02)
[2017-03-17] MEDS: LEVOFLOXACIN INJ 500 MG in PREMIX 1 EACH IV SCH (17:11)
[2017-03-17] MEDS: MIRTAZAPINE 15 MG TABLET PO SCH (20:50)
[2017-03-18] MEDS: ALBUTEROL/IPRATROPIUM 3 ML NEB RESP TX SCH ×6 (02:47→23:50)
[2017-03-18 07:01] LABS: Basophils % 0.3 % (0.0-0.8); Eosinophils # 0.2 10*3/uL (0.0-0.87); Eosinophils % 5.9 % (0.00-10.9); Hematocrit 26.3 VOL% (35.7-47.0); Immature Granulocytes % 0.3 %; Immature Granulocytes Absolute 0.01 #; Lymphocytes % 25.8 % (21.3-54.2); Mean Corpuscular HGB Conc 30.4 GM/DL (32-36); Mean Corpuscular Hemoglobin 24 PG (27-34); Mean Platelet Volume 9.2 FL (9.6-12.0); Monocytes # 0.4 10*3/uL (0.11-0.8); Monocytes % 9.5 % (1.7-12.7); Neutrophils # 2.3 10*3/uL (1.4-7.4); Neutrophils % 58.2 % (38.7-73.9); Platelet Count 232 T/CUMM (130-400); Red Blood Count 3.33 MC/CUMM (3.8-5.5); Red Cell Distribution Width 18.6 % (9.3-17.3); White Blood Count 3.9 T/CUMM (4-12)
[2017-03-18 07:32] LABS: Calcium 9.1 MG/DL (8.5-10.1); Osmolality,Calculated 291.6 MOS/KG (273-304); Potassium 4.3 MMOL/L (3.5-5.1)
[2017-03-18] MEDS: clonazePAM 0.5 MG TABLET PO SCH ×2 (09:09→20:12)
[2017-03-18] MEDS: FLUCONAZOLE 200 MG TABLET PO SCH (09:09)
[2017-03-18] MEDS: LEVOTHYROXINE 100 MCG TABLET PO SCH (09:09)
[2017-03-18] MEDS: PANTOPRAZOLE 40 MG TABLET PO SCH (09:09)
[2017-03-18] MEDS: buPROPion SR 150 MG TABLET PO SCH ×2 (09:09→20:12)
--- NOTE | 2017-03-18 09:58 | Pulmonology Progress Note ---
Pulmonary - PN: Subj Interval history: This 66-year-old white female has recurrent right middle lobe pneumonia. She has a remote history of sarcoid. She has had 2 different fungal infections. Infectious disease has seen her yesterday and asked that we get some samples from along. I will proceed with bronchoscopy this morning. I discussed the procedure and complications with the patient this morning. 03/18/2017 patient is feeling better. Not requiring oxygen. Still having some right pleuritic pain. Her says that she usually gets these episodes when she aspirates. She is alert. She does have some reflux symptoms. It may be microaspiration but I do not think she is grossly aspirating. In any rate thus far the smears for AFB and fungi are negative. Culture should be out tomorrow as should be cytology. Can make a decision about discharge at that time. Exam (Progress Note) - Constitutional Vitals: Period Temp Pulse Resp BP Sys/Young Pulse Ox Last 24 Hr 97.6 F-98.6 F 67-85 16-22 84-110/46-70 95-100 Exam: Patient's alert oriented vital signs normal. Pupils react to light. Throat is clear. Neck supple no bruits. Chest reveals some rhonchi over the right middle lobe. Heart normal rate rhythm no murmurs. Abdomen soft no masses. Extremities no clubbing cyanosis edema. Calves nontender. Little change from yesterday. Results - Labs CBC & BMP: 03/18/17 06:30 03/18/17 06:30 Lab Results: I have reviewed the past 24 hour labs Assessment and Plan (1) Sarcoidosis Status: Acute Assessment and plan: Remote history of sarcoid treated with prednisone for 6 months and felt to be in remission for at least 15 years. Will check an JAZMINE level but doubt she has recurrence. 03/17/2017 remote history of sarcoid. Probably not active. 03/18/2017 suspect sarcoid is remote and not active. I have ordered an JAZMINE level. Current Visit: No (2) Histoplasmosis Status: Acute Assessment and plan: Needle biopsy of left long about 5 years ago showed histoplasma in the biopsy. Apparently was felt to be old disease and not treated at that time. 03/17/2017 remote history of histoplasmosis. 03/18/2017 likely this is remote as well. Agree with urine histo antigen. Current Visit: No (3) Pneumonia Status: Acute Assessment and plan: Symptomatically it appears that she has a right middle and lower lobe bronchopneumonia. Agree with empiric antibiotics. I will likely plan bronchoscopy in a couple of days. 03/17/2017 recurrent right middle lobe pneumonia. Plan bronchoscopy to see what the etiologic agent is. 03/18/2017 likely this is a bacterial pneumonia however we need to see what the cultures and cytology show. Current Visit: Yes (4) History of meningitis Status: Acute Assessment and plan: Was treated for cryptococcal meningitis about 3 years ago. Again had problems with immunosuppression at that time from medications for psoriasis. Current Visit: Yes
--- NOTE | 2017-03-18 11:15 | Pathology Report from [facility] ---
[facility] ACCESSION # : [id number] PATIENT NAME : Ghazal Carey ORDERING DR : FINN LOUIS MD CLINICAL HX: Recurrent Right Middle lobe Pneumonia, Hx of Sarcoid, Hx of 2 different fungal infections. POST-OP DX: Same SPECIMEN INFO: Washing,Bronchial,RightLung - 10 mls bloody, cloudy CLASS: II CLASS COMMENTS: Reactive respiratory cells, inflammationCELL BLOCK: Same CLASS LEGEND: CLASS 0 Material inadequate for diagnosis because of (see comment) CLASS I Absence of atypical or abnormal cells CLASS II Atypical Cytology but no evidence of malignancy CLASS III Cytology suggestive of but not conclusive for malignancy CLASS IV Cytology strongly suggestive of malignancy CLASS V Cytology conclusive for malignancy COLLECTED DATE: 03/17/2017 [facility] REPORT DATE: 03/18/2017 ELECTRONICALLY SIGNED BY: Ethan Dumont M.D. 03/18/2017 - 8:40:34 MTDGeorgina
--- NOTE | 2017-03-18 11:16 | Pathology Report from [facility] ---
[facility] [place] ACCESSION # : [id number] PATIENT NAME : Ghazal Carey ORDERING DR : FINN LOUIS MD CLINICAL HX: Recurrent Right Middle Lobe Pneumonia, Hx of Sarcoid, Hx of 2 different fungal infections. POST-OP DX: Same SPECIMEN INFO: Brushing,Bronchial,RML - 2 brushes (Received in [facility]). CLASS: II CLASS COMMENTS: Reactive bronchial cells, inflammation.CELL BLOCK: Same CLASS LEGEND: CLASS 0 Material inadequate for diagnosis because of (see comment) CLASS I Absence of atypical or abnormal cells CLASS II Atypical Cytology but no evidence of malignancy CLASS III Cytology suggestive of but not conclusive for malignancy CLASS IV Cytology strongly suggestive of malignancy CLASS V Cytology conclusive for malignancy COLLECTED DATE: 03/17/2017 [facility] [place] REPORT DATE: 03/18/2017 ELECTRONICALLY SIGNED BY: Ethan Dumont M.D. 03/18/2017 - 8:44:38 MTDD
--- NOTE | 2017-03-18 11:16 | Pathology Report from [facility] ---
[facility] [place] : [id number] PATIENT NAME : Ghazal Carey ORDERING DR : FINN LOUIS MD CLINICAL HX: Recurrent Right Middle Lobe Pneumonia, Hx of Sarcoid, Hx of 2 different fungal infections. POST-OP DX: Same SPECIMEN INFO: Brushing,Bronchial,RLL - 1 brush (Received in [facility]). CLASS: I CLASS COMMENTS: Acute inflamamation, benign respiratory epithelium.CELL BLOCK: Same CLASS LEGEND: CLASS 0 Material inadequate for diagnosis because of (see comment) CLASS I Absence of atypical or abnormal cells CLASS II Atypical Cytology but no evidence of malignancy CLASS III Cytology suggestive of but not conclusive for malignancy CLASS IV Cytology strongly suggestive of malignancy CLASS V Cytology conclusive for malignancy COLLECTED DATE: 03/17/2017 [facility] REPORT DATE: 03/18/2017 ELECTRONICALLY SIGNED BY: Ethan Dumont M.D. 03/18/2017 - 8:47:21 MTDD
--- NOTE | 2017-03-18 11:17 | Infectious Disease Progress ---
Assessment and Plan (1) Pneumonia Status: Acute Assessment and plan: Pneumonia involving right lung lower lobe. Likely community-acquired. 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 Recommendations: Continue empiric levofloxacin. Follow-up on BAL cultures and urine histoplasma antigen. Discussed with at bedside Current Visit: Yes (2) ARF (acute renal failure) Status: Acute Assessment and plan: I's improving since admission and stable since yesterday. Continue to monitor. 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 She will remain on secondary prophylaxis with fluconazole. Current Visit: Yes Infectious Disease - PN: Subj Interval history: Patient doing generally okay, breathing better less wheezing. Still with some right-sided chest pain, pleuritic. No fever. Infectious Disease Exam (PN) - Constitutional Vitals: Temp Pulse Resp BP Pulse Ox 97.6 F 88 20 110/70 99 03/18/17 07:25 03/18/17 10:31 03/18/17 10:31 03/18/17 07:25 03/18/17 10:31 Exam: General appearance: Comfortable - Eye Eye exam: Present: EOMI. no icterus Pupils: Present: JAE - ENT ENT exam: no oral exudates - Respiratory Respiratory exam: vesicular BS, occasional rhonchi bilaterally - Cardiovascular Cardiovascular exam: regular rate and rhythm, no murmurs - GI/Abdominal GI/Abdominal exam: normal bowel sounds, soft, non-tender, no organomegaly or mass - Extremities Exam Extremities exam: no edema - Skin Skin exam: no rash Results - Labs CBC & BMP: 03/18/17 06:30 03/18/17 06:30 Lab Results: I have reviewed the past 24 hour labs (Preliminary stains of BAL specimen, fungal AFB and bacterial Gram stain, are negative)
--- NOTE | 2017-03-18 13:46 | Hospitalist Progress Note ---
Assessment and Plan (1) Community acquired pneumonia Status: Acute Assessment and plan: Dr. Tate and Dr. Valencia following. JAZMINE level within normal range ruling out sarcoid. Urine for histoplasma antigen order. Awaiting results of bronchoscopy Current Visit: No (2) ARF (acute renal failure) Status: Acute Assessment and plan: chronic stage 3 renal failure Current Visit: No (3) HTN (hypertension) Status: Acute Assessment and plan: Blood pressure is no longer low off her Requip. Current Visit: No (4) Histoplasmosis Status: Acute Assessment and plan: Bronchoscopy cultures pending Current Visit: No (5) Hypothyroidism Status: Acute Assessment and plan: cont levothyroxine. Current Visit: No Hospitalist: Subjective Interval history: Patient looks good today. She is not requiring any supplemental oxygen. Dr. aTte and I have discussed her case. If no growth tomorrow on her cultures will DC home Exam - Constitutional Vitals: Period Temp Pulse Resp BP Sys/Young Pulse Ox Last 24 Hr 97.6 F-98.6 F 67-107 16-22 90-114/46-71 95-100 Exam: Heart Rate-[RRR] Lungs-[bilateral wheezes GI-[+bs soft, NT] Ext-[no edema] Neuro [Motor 5/5], [alert and oriented times 3] psych [normal mood and affect] General [no acute distress] Results - Labs CBC & BMP: 03/18/17 06:30 03/18/17 06:30 Lab Results: I have reviewed the past 24 hour labs Labs: Blood cultures no growth, bronchial cultures negative no growth 3 pathology report shows only acute inflammation, reactive bronchial cells showing inflammation
[2017-03-18] MEDS: rOPINIRole 1 MG TABLET PO SCH ×2 (16:46→21:39)
[2017-03-18] MEDS: LOVASTATIN 20 MG TABLET PO SCH (16:46)
[2017-03-18] MEDS: LEVOFLOXACIN INJ 500 MG in PREMIX 1 EACH IV SCH ×2 (16:47→17:49)
[2017-03-18] MEDS: MIRTAZAPINE 15 MG TABLET PO SCH (20:12)
[2017-03-19] MEDS: ALBUTEROL/IPRATROPIUM 3 ML NEB RESP TX SCH ×4 (03:50→11:07)
[2017-03-19 07:10] LABS: Basophils % 0.5 % (0.0-0.8); Eosinophils # 0.3 10*3/uL (0.0-0.87); Eosinophils % 8.5 % (0.00-10.9); Hematocrit 28.8 VOL% (35.7-47.0); Hemoglobin 9.1 GM/DL (12.0-16.0); Immature Granulocytes % 0.3 %; Immature Granulocytes Absolute 0.01 #; Lymphocytes # 1.2 10*3/uL (1.4-4.0); Lymphocytes % 29.1 % (21.3-54.2); Mean Corpuscular HGB Conc 31.6 GM/DL (32-36); Mean Corpuscular Hemoglobin 25 PG (27-34); Mean Corpuscular Volume 77.4 FL (87-102); Mean Platelet Volume 9.9 FL (9.6-12.0); Monocytes # 0.4 10*3/uL (0.11-0.8); Monocytes % 9.5 % (1.7-12.7); Neutrophils # 2.1 10*3/uL (1.4-7.4); Neutrophils % 52.1 % (38.7-73.9); Platelet Count 279 T/CUMM (130-400); Red Blood Count 3.72 MC/CUMM (3.8-5.5); Red Cell Distribution Width 18.4 % (9.3-17.3)
[2017-03-19 08:02] LABS: Calcium 8.8 MG/DL (8.5-10.1); Potassium 4.2 MMOL/L (3.5-5.1)
[2017-03-19] MEDS: buPROPion SR 150 MG TABLET PO SCH (08:20)
[2017-03-19] MEDS: FLUCONAZOLE 200 MG TABLET PO SCH (08:20)
[2017-03-19] MEDS: PANTOPRAZOLE 40 MG TABLET PO SCH (08:20)
[2017-03-19] MEDS: LEVOTHYROXINE 100 MCG TABLET PO SCH (08:20)
[2017-03-19] MEDS: clonazePAM 0.5 MG TABLET PO SCH (08:20)
--- NOTE | 2017-03-19 09:34 | Pulmonology Progress Note ---
Pulmonary - PN: Subj Interval history: This 66-year-old white female has recurrent right middle lobe pneumonia. She has a remote history of sarcoid. She has had 2 different fungal infections. Infectious disease has seen her yesterday and asked that we get some samples from along. I will proceed with bronchoscopy this morning. I discussed the procedure and complications with the patient this morning. 03/18/2017 patient is feeling better. Not requiring oxygen. Still having some right pleuritic pain. Her says that she usually gets these episodes when she aspirates. She is alert. She does have some reflux symptoms. It may be microaspiration but I do not think she is grossly aspirating. In any rate thus far the smears for AFB and fungi are negative. Culture should be out tomorrow as should be cytology. Can make a decision about discharge at that time. 03/19/2017 patient feeling better. Cytology negative. Smears for AFB and fungi are negative. Still could grow something out, but I would favor this being bacterial and she could be discharged on oral antibiotics. I plan to see her back in about 6 weeks and will obtain a CT scan at that time. Exam (Progress Note) - Constitutional Vitals: Period Temp Pulse Resp BP Sys/Young Pulse Ox Last 24 Hr 96.2 F-98.2 F 57-107 18-21 98-117/49-71 95-100 Exam: Patient's alert oriented vital signs normal. Pupils react to light. Throat is clear. Neck supple no bruits. Chest reveals some rhonchi over the right middle lobe. Heart normal rate rhythm no murmurs. Abdomen soft no masses. Extremities no clubbing cyanosis edema. Calves nontender. Results - Labs CBC & BMP: 03/19/17 06:07 03/19/17 06:07 Lab Results: I have reviewed the past 24 hour labs Assessment and Plan (1) Sarcoidosis Status: Acute Assessment and plan: Remote history of sarcoid treated with prednisone for 6 months and felt to be in remission for at least 15 years. Will check an JAZMINE level but doubt she has recurrence. 03/17/2017 remote history of sarcoid. Probably not active. 03/18/2017 suspect sarcoid is remote and not active. I have ordered an JAZMINE level. 03/19/2017 and again this is remote and not likely active. Serum JAZMINE level was 28 which is normal. Current Visit: No (2) Histoplasmosis Status: Acute Assessment and plan: Needle biopsy of left long about 5 years ago showed histoplasma in the biopsy. Apparently was felt to be old disease and not treated at that time. 03/17/2017 remote history of histoplasmosis. 03/18/2017 likely this is remote as well. Agree with urine histo antigen. 03/19/2017 smear is negative for fungi. Current Visit: No (3) Pneumonia Status: Acute Assessment and plan: Symptomatically it appears that she has a right middle and lower lobe bronchopneumonia. Agree with empiric antibiotics. I will likely plan bronchoscopy in a couple of days. 03/17/2017 recurrent right middle lobe pneumonia. Plan bronchoscopy to see what the etiologic agent is. 03/18/2017 likely this is a bacterial pneumonia however we need to see what the cultures and cytology show. 03/19/2017 appears to be bacterial. Everything negative from bronchoscopy. Current Visit: Yes (4) History of meningitis Status: Acute Assessment and plan: Was treated for cryptococcal meningitis about 3 years ago. Again had problems with immunosuppression at that time from medications for psoriasis. Current Visit: Yes
--- NOTE | 2017-03-19 09:34 | Discharge Summary ---
Addendum entered and electronically signed by Niecy Armando NP 03/19/17 09: 35: Addendum to hospital course: Patient will be discharged on oral antibiotics. She is to follow-up with Dr. Tate in [address] scan. Original Note: <Niecy Armando - Last Filed: 03/19/17 09:01> Hospital Course - Hospital Course Hospital Course: Ms. Bird is a 66-year-old female patient with a history of hypertension, CVA, pneumonia, COPD, renal insufficiency, sarcoid, histoplasmosis, and meningitis presented to the hospital on 03/15 with chief complaint of cough with white foamy sputum and fever that lasted 2 days. Patient reports that she recently had pneumonia. Patient reported pleuritic right-sided chest pain. Chest x-ray ED confirmed pneumonia and patient was started on empiric antibiotics (Levaquin) . Pulmonology and infectious disease were consulted to assist in the care of the patient. Patient was noted to have a history of sarcoid and an JAZMINE level was normal. Patient also had a fiberoptic bronchoscopy with brushings from right middle lobe lower lobe on 03/17. Samples were obtained during the block. The patient tolerated procedure well. Patient's condition improved she was reported to have been feeling better. Patient still had some right pleuritic pain. Patient was also noted to have some reflux issues. Smears for AFB and fungal and found to be negative. Blood culture showed no growth. Pathology report only showed acute inflammation. The patient is stable and has not required any supplemental oxygen. She is able to be discharged. Follow up with Dr. Tate and [address] of chest and follow-up with primary medical doctor in 1-2 weeks Specialty Discharge - Follow Up or Referrals Follow up with: Devante Tate MD [Physician] - 04/27/17 2:45 pm ([address], Non-Contrast ) Discharge Plan - Discharge Data Disposition: Disch To Home/Self Care - Discharge Medications New Albuterol/Ipratropium Neb [Duoneb] 3 ml RESP TX TID #90 vial Levofloxacin Tab [Levaquin Tab] 750 mg PO DAILY #10 tablet Continue Fluconazole 200 mg PO DAILY buPROPion SR [Wellbutrin Sr] 150 mg PO BID Levothyroxine Tab [Synthroid Tab] 100 mcg PO DAILY Ropinirole HCl 2 mg PO QAM Ropinirole HCl [Requip] 4 mg PO BEDTIME Mirtazapine 15 mg PO BEDTIME clonazePAM [Clonazepam] 1 mg PO BID Lovastatin 20 mg PO DAILY W/SUPPER Albuterol Sulfate [Ventolin HFA] 2 puff INH Q4H PRN PRN Reason: Shortness Of Breath/Wheezing Biotin 10,000 mcg PO DAILY Estradiol Tab [Estrace Tab] 2 mg PO DAILY #0 Hydrocodone/Acetaminophen [Hydrocodon-Acetaminophn 10-325] 1 each PO TID #20 tablet Esomeprazole Magnesium [Esomeprazole] 1 each PO DAILY Discontinued Amlodipine Besylate [Amlodipine Besylate] 5 mg PO DAILY Losartan Potassium 50 mg PO DAILY - Follow Up or Referral Follow Up: Devante Tate MD [Physician] - 04/27/17 2:45 pm ([address], Non-Contrast ) dr france [Other] - 2 Weeks - Forms/Instructions Exam - Constitutional Vitals: Period Temp Pulse Resp BP Sys/Young Pulse Ox Last 24 Hr 96.2 F-98.6 F 57-107 18-21 98-117/49-71 95-100 Discharge Results Procedures and tests throughout hospitalization: Pending Orders 03/15/17 21:49 Blood Culture Stat 03/17/17 AFB Culture/Smears Routine Fungal Culture w/ Prep Routine 03/17/17 07:45 AFB Culture/Smears Routine Fungal Culture w/ Prep Routine 03/17/17 07:48 Cytology Request Routine 03/17/17 09:57 Histoplasma Antigen,Urine Routine Labs on day of discharge: Labs from last 24 hours 03/19/17 03/19/17 06:07 06:07 WBC 4.0 RBC 3.72 L Hgb 9.1 L Hct 28.8 L MCV 77.4 L MCH 25 L MCHC 31.6 L RDW 18.4 H Plt Count 279 D MPV 9.9 Neut % (Auto) 52.1 Lymph % (Auto) 29.1 Bond % (Auto) 9.5 Eos % (Auto) 8.5 Baso % (Auto) 0.5 Neut # (Auto) 2.1 Lymph # (Auto) 1.2 L Bond # (Auto) 0.4 Eos # (Auto) 0.3 Baso # (Auto) 0.0 Immature Gran % 0.3 Nucleated RBC % 0.0 Immature Gran # 0.01 Nucleated RBCs # 0.00 Sodium 143 Potassium 4.2 Chloride 108 H Carbon Dioxide 26 Anion Gap 13.2 BUN 20 H Creatinine 1.40 H GFR Calculation 42 BUN/Creatinine Ratio 14.00 Glucose 119 H Calculated Osmolality 288.0 Calcium 8.8 Preliminary micro results at discharge 03/16/17 01:43 Blood Culture - Preliminary Blood No growth at 3 days 03/16/17 01:43 Blood Culture - Preliminary Blood No growth at 3 days DS: Provider Date of admission: 03/15/17 21:47 Primary care physician: . No PCP Attending physician on admission: Avtar Long MD Consults: 03/15/17 22:02 Consult to Physician [CONS] Routine Comment: patient known to you with pneumonia again Consulting Provider: Devante Tate Person Notified: EM Date Notified: 03/16/17 Time Notified: 09:11 03/16/17 10:36 Consult to Physician [CONS] Routine Comment: Recurrent pneumonias, hx of histo, & crypto mening Consulting Provider: Brandy Cevallos Consult to Specialist Group: Infectious Disease When should Consulting Provider be notified: Now Person Notified: anshu Date Notified: 03/16/17 Time Notified: 12:06 Discharging clinician: Niecy Armando NP <Yumiko Childers - Last Filed: 03/19/17 11:23> Hospital Course - Time spent with patient Time with patient DS: Greater than 30 minutes (45 min) Diagnosis - Discharge Diagnosis (1) Community acquired pneumonia Status: Acute (2) ARF (acute renal failure) Status: Acute (3) HTN (hypertension) Status: Acute (4) Histoplasmosis Status: Acute (5) Hypothyroidism Status: Acute Discharge Plan - Discharge Data Condition at Discharge: Stable Discharge Diet: heart healthy Activity: resume usual activities as tolerated Hygiene: no restrictions Weight Bearing at Discharge: full weight bearing Driving: no restrictions Exam - Constitutional General appearance: normal weight, no acute distress - Respiratory Respiratory exam: Present: wheezes. Absent: rales, rhonchi - Cardiovascular Cardiovascular exam: Present: regular rate and rhythm. Absent: systolic murmur - GI/Abdominal GI/Abdominal exam: Present: normal bowel sounds, soft. Absent: tenderness
--- NOTE | 2017-03-19 09:59 | Event Note ---
Doing well, minimal cough, no fever. Going to be discharged home today on levofloxacin and will follow up with Dr. Tate in [address] chest.
[2017-03-19 10:53] VITALS: BP 102/49
== END 2017-03-19 13:20 | disposition home or self-care (01) | DRG 190 ==
LOC: N.ED 19:28 → N.EDINP 21:47 → SUATTDRO 21:47 → N.5E 22:15
PROVIDERS: ADMIT Internal Medicine; ATTEND Internal Medicine

== ENCOUNTER 2017-05-27 21:18 | Inpatient (IN) ==
[2017-05-27] MEDS ORDERED: PANTOPRAZOLE 40 MG VIAL IV STA (22:40)
[2017-05-27] MEDS ORDERED: SODIUM CHLORIDE 0.9% 1,000 ML IV STA (22:40)
[2017-05-27] MEDS ORDERED: ONDANSETRON 4 MG/2 ML VIAL IV STA (22:40)
--- NOTE | 2017-05-27 22:44 | Emergency Department Note ---
Tressa Best Rolonda, am scribing for, and in the presence of, Harley Hale MD 22:39. Geoffrey Best Charles R, MD, personally performed the services described in this documentation, ascribed by Mel Bustillos in my presence, and it is both accurate and complete . Arrival - Arrival Chief Complaint: Nausea/Vomiting/Diarrhea Stated Complaint: diarrhea x5 days/nausea/SOB ED Nursing Triage Note: TO ER PER WHEELCHAIR WITH COMPLAINT OF VOMITTING AND DIARRHEA X 5 DAYS. FAMILY THINKS SHE HAS A VIRUS AND IS DEHYDRATED. Mode of Arrival: Wheelchair Limitations: No Limitations Source: Patient, Old Records Reviewed, RN Notes Reviewed - History of Present Illness HPI Narrative: Pt is a 67 y/o ill appearing female who presents to the ED with c/o N/V with an onset of x5 days. Pt has a PMHx of HTN, CVA, Endocrine, Respiratory, and Genitourinary issues. Pt states that she has not been able to keep anything down and has not had much of an appetite. She states that she has diarrhea every time she eats and has vomited 5-6 times today. Son states that pt is very weak which is not normal. She confirms associated sxs of abdominal pain. She is f/u by Dr. Cook. No other complaint/pain in ED. Onset (ago): day(s) Consistency: constant Severity: moderate Severity scale (1-10): 5 Allergies/Adverse Reactions: Allergies Allergy/AdvReac Type Severity Reaction Status Date / Time aripiprazole [From Abilify] AdvReac Severe sucicidal Verified 05/27/17 22:00 ideation pregabalin [From Lyrica] AdvReac Swelling Verified 05/27/17 22:00 of Lip/Tongue/Throat Home Medications: Home Medications Medication Instructions Recorded Confirmed Type Fluconazole 200 mg PO DAILY 06/27/15 03/15/17 History Levothyroxine Tab [Synthroid Tab] 100 mcg PO DAILY 06/27/15 03/15/17 History Lovastatin 20 mg PO DAILY W/SUPPER 06/27/15 03/15/17 History Mirtazapine 15 mg PO BEDTIME 06/27/15 03/15/17 History Ropinirole HCl 2 mg PO QAM 06/27/15 03/15/17 History Ropinirole HCl [Requip] 4 mg PO BEDTIME 06/27/15 03/15/17 History buPROPion SR [Wellbutrin Sr] 150 mg PO BID 06/27/15 03/15/17 History clonazePAM [Clonazepam] 1 mg PO BID 06/27/15 03/15/17 History Albuterol Sulfate [Ventolin HFA] 2 puff INH Q4H PRN 11/15/16 03/15/17 History Hydrocodone/Acetaminophen 1 each PO TID #20 tablet 11/19/16 03/15/17 Rx [Hydrocodon-Acetaminophn 10-325] Biotin 10,000 mcg PO DAILY 03/15/17 03/15/17 History Esomeprazole Magnesium 1 each PO DAILY 03/15/17 03/15/17 History [Esomeprazole] Albuterol/Ipratropium Neb [Duoneb] 3 ml RESP TX TID #90 vial 03/19/17 Rx Estradiol Tab [Estrace Tab] 2 mg PO DAILY #0 03/19/17 03/15/17 Rx Levofloxacin Tab [Levaquin Tab] 750 mg PO DAILY #10 tablet 03/19/17 Rx Review of System - Review of System 12 point system: reviewed and no additional remarkable complaints except as stated - Review of System Constitutional: Present: weakness. Absent: chills, fever Eyes: Absent: discharge Head/Ears/Nose/Throat: Absent: earache Respiratory: Absent: cough Cardiovascular: Absent: chest pain Gastrointestinal: Present: abdominal pain, nausea, vomiting, diarrhea Genitourinary female: Absent: dysuria Musculoskeletal: Absent: arm pain, back pain Skin: Absent: rash Neurological: Absent: headache Psychiatric: Absent: anxiety Endocrine: Absent: cold intolerance Hematological/Lymphatic: Absent: easy bleeding Allergic/Immunologic: Absent: facial swelling Medical,Surgical,& Family Hx - Medical History Cardio: History of: Hypertension Psychological: History of: Anxiety Disorders, ADHD (Attention), Depression Neurology: History of: Cerebrovascular Accident (2007) Comment Only: Dementia (memory loss from stroke) HEENT: History of: Eye Problem (Reaing glasses), Dental Problems (Full Set Dentures) Endocrine: History of: Thyroid Disorder Rheumatology: History of;: Fibromyalgia, Psoriasis Respiratory: History of: COPD, Pneumonia (2008-ventilator), Respiratory Problems (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 Kay;sarcoidosis) Renal: History of: Renal Problems (chronic renal insufficiency-65% due to antibiotics-Dr. Mendosa) Genitourinary: History of: Bladder Problem (bladder-sudden onset atrophy) Gastrointestinal: History of: GERD, GI Problems (bowel incontinence) No history of: Polyps Musculoskeletal: History of: Musculoskeletal Problems (Arthritis-OA; osteopenia) Other: No history of: Anesthesia Reactions, Cancer - Surgical History Abdominal Surgeries: Surgical HX of: Abdominal Surgery, Colonoscopy Reproductive Surgeries: Surgical HX of;: Breast Surgery (Rt Breast benign; watching lumb lt breast), Hysterectomy (Partial) Orthopedic Surgeries: Surgical HX of;: Total Knee Replacement - Family History Family History: Reports;: Family Cancer (Brother-Lung/bone/colon), Family Diabetes (Mother/brother), Family Heart Disease (Father), Family Hypertension ( Mother/Brother), Family Stroke (Grandfather) - Social History Smoking Status: Never smoker Frequency of Alcohol Use: None Type of Drug Use: None Exam Vital Signs: Vital Signs Temperature 97.5 F L 05/27/17 21:52 Pulse Rate 109 H 05/27/17 21:52 Respiratory Rate 18 05/27/17 21:52 Blood Pressure 88/47 05/27/17 21:52 O2 Sat by Pulse Oximetry 95 05/27/17 21:52 - General General appearance: alert, in no apparent distress - Head Head exam: Present: atraumatic, normocephalic - Eye Eye exam: Present: PERRL, EOMI. Absent: normal appearance (sunken orbits) - ENT ENT exam: Present: mucous membranes dry. Absent: mucous membranes moist - Neck Neck exam: Present: full ROM. Absent: tenderness - Chest Chest inspection: Present: symmetric chest wall rise. Absent: tenderness - Respiratory Respiratory exam: Present: rhonchi (bilateral) - Cardiovascular Cardiovascular exam: Present: normal rhythm, tachycardia - Abdominal Exam Abdominal exam: Present: soft, distention, hyperactive bowel sounds - Extremities Exam Extremities exam: Present: full ROM. Absent: tenderness - Back Exam Back exam: Present: full ROM. Absent: tenderness - Neurological Exam Neurological exam: Present: alert, oriented X3, CN II-XII intact - Psychiatric Psychiatric exam: Present: normal affect, normal mood - Skin Skin exam: Present: warm, dry, intact, other (poor skin turgor). Absent: rash Course - Reevaluation(s) Reevaluation #1: Pressures still low patient still feeling sick patient is not vomiting but having diarrhea still, patient will be admitted to the ICU overnight Time: 00:01 - Consultations Consultation #1: Hospitalist will admit patient Time: 00:01 Results - Labs CBC & BMP: 05/27/17 22:59 05/27/17 22:59 Lab Results: I have reviewed the patients labs Labs: Laboratory Tests 05/27/17 22:59 WBC 10.8 RBC 5.66 H Hgb 13.8 Hct 40.6 MCV 71.7 L MCH 24 L RDW 18.2 H Plt Count 289 Neut % (Auto) 76.5 H Lymph % (Auto) 13.7 L Neut # (Auto) 8.2 H [place] # (Auto) 0.9 H Laboratory Tests 05/27/17 22:59 Sodium 130 L Potassium 3.1 L Chloride 99 Carbon Dioxide 15 L Anion Gap 19.1 H BUN 46 H Creatinine 6.40 H GFR Calculation 6 Glucose 170 H Magnesium 2.7 H AST 23 Globulin 4.4 H Albumin/Globulin Ratio 0.7 L Amylase 13 L Lipase 53.0 L Critical Care Time Critical Care Time: Yes Total Critical Care Time: 60 Disposition Clinical Impression: Gastroenteritis, Dehydration, ARF (acute renal failure), Histoplasmosis, COPD ( chronic obstructive pulmonary disease), History of meningitis, Sarcoidosis, Sepsis, Diarrhea, Generalized weakness, Metabolic acidosis Case discussed with: patient, patient's family Disposition: Still a Patient Condition: Guarded Time of Disposition: 00:03
[2017-05-27] MEDS ORDERED: ONDANSETRON 4 MG/2 ML VIAL ONE (23:30)
[2017-05-27] MEDS ORDERED: PANTOPRAZOLE 40 MG VIAL IV ONE (23:30)
[2017-05-27 23:33] LABS: Basophils # 0.1 10*3/uL (0.0-0.2); Basophils % 0.6 % (0.0-0.8); Hematocrit 40.6 VOL% (35.7-47.0); Hemoglobin 13.8 GM/DL (12.0-16.0); Immature Granulocytes % 0.7 %; Immature Granulocytes Absolute 0.08 #; Lymphocytes # 1.5 10*3/uL (1.4-4.0); Lymphocytes % 13.7 % (21.3-54.2); Mean Corpuscular Hemoglobin 24 PG (27-34); Mean Corpuscular Volume 71.7 FL (87-102); Mean Platelet Volume 10.3 FL (9.6-12.0); Monocytes # 0.9 10*3/uL (0.11-0.8); Monocytes % 8.5 % (1.7-12.7); Neutrophils # 8.2 10*3/uL (1.4-7.4); Neutrophils % 76.5 % (38.7-73.9); Platelet Count 289 T/CUMM (130-400); Red Blood Count 5.66 MC/CUMM (3.8-5.5); Red Cell Distribution Width 18.2 % (9.3-17.3); White Blood Count 10.8 T/CUMM (4-12)
[2017-05-27 23:48] LABS: Alanine Aminotransferase 23 U/L (13-56); Albumin 3.5 G/DL (3.4-5.0); Alkaline Phosphatase 87 U/L (45-117); Amylase 13 U/L (25-115); Aspartate Amino Transferase 23 U/L (0-37); Bilirubin,Total < 0.39 MG/DL (0.2-1.0); Blood Urea Nitrogen 46 MG/DL (7-18); Calcium 9.4 MG/DL (8.5-10.1); Glucose 170 MG/DL (74-106); Magnesium 2.7 MG/DL (1.8-2.4); Osmolality,Calculated 275.8 MOS/KG (273-304); Potassium 3.1 MMOL/L (3.5-5.1); Sodium 130 MMOL/L (136-145); Total Protein 7.9 G/DL (6.4-8.3); Troponin I Only < 0.015 NG/ML (0.00-0.045)
[2017-05-28] MEDS ORDERED: POTASSIUM CHLORIDE 20 MEQ TABLET PO STA (00:03)
[2017-05-28 00:27] LABS: Allen Test Positive
[2017-05-28] MEDS ORDERED: POTASSIUM CHLORIDE 20 MEQ TABLET PO ONE (00:39)
[2017-05-28 00:40] LABS: Lactic Acid 0.8 MMOL/L (0.4-2.0)
[2017-05-28 00:56] LABS: ABG Base Excess -9.8 MMOL/L (-2.5-2.5); ABG HCO3 14.4 MMOL/L (20-26); ABG PCO2 27.1 MM HG (35-48); ABG PH 7.344 (7.35-7.45); ABG PO2 131.5 MM HG (80-95); ABG TCO2 15.3 MMOL/L (23-27)
--- NOTE | 2017-05-28 01:09 | Hospitalist History & Physical ---
Assessment and Plan (1) ARF (acute renal failure) Status: Acute Current Visit: Yes (2) COPD (chronic obstructive pulmonary disease) Status: Acute Current Visit: Yes (3) Dehydration Status: Acute Current Visit: Yes (4) Diarrhea Status: Acute Current Visit: Yes (5) Gastroenteritis Status: Acute Current Visit: Yes (6) Generalized weakness Status: Acute Current Visit: Yes (7) History of meningitis Status: Acute Current Visit: Yes (8) Sarcoidosis Status: Acute Current Visit: Yes (9) Metabolic acidosis Status: Resolved Assessment and plan: Our plan for this patient will be admitting her to our service. We will continue her home meds as appropriate. We need to check her stool culture and C. difficile 3. She is having a metabolic acidosis most likely secondary to bicarb loss through the stool. I have already repleted her potassium in the emergency room she needs hydration with IV fluids. I would consider a GI evaluation if the diarrhea does not let up. Current Visit: No History of Present Illness Chief complaint: Weakness History of present illness: Ms. Carey is a 67 year old female with past medical history of fibromyalgia psoriasis histoplasmosis sarcoidosis and meningitis who presents to our ER tonight. Apparently she was in normal state of health until Thursday and she started developing diarrhea. She reports that she has had significant amounts of diarrhea ever since then. She has been having 4 days of nausea and vomiting. She became so weak she felt like she needed to come into our hospital for further evaluation. Patient was found to have acute kidney injury secondary to dehydration. I was consulted to admit her through the emergency room. Home Medications Medication Instructions Recorded Confirmed Type Fluconazole 200 mg PO DAILY 06/27/15 03/15/17 History Levothyroxine Tab [Synthroid Tab] 100 mcg PO DAILY 06/27/15 03/15/17 History Lovastatin 20 mg PO DAILY W/SUPPER 06/27/15 03/15/17 History Mirtazapine 15 mg PO BEDTIME 06/27/15 03/15/17 History Ropinirole HCl 2 mg PO QAM 06/27/15 03/15/17 History Ropinirole HCl [Requip] 4 mg PO BEDTIME 06/27/15 03/15/17 History buPROPion SR [Wellbutrin Sr] 150 mg PO BID 06/27/15 03/15/17 History clonazePAM [Clonazepam] 1 mg PO BID 06/27/15 03/15/17 History Albuterol Sulfate [Ventolin HFA] 2 puff INH Q4H PRN 11/15/16 03/15/17 History Hydrocodone/Acetaminophen 1 each PO TID #20 tablet 11/19/16 03/15/17 Rx [Hydrocodon-Acetaminophn 10-325] Biotin 10,000 mcg PO DAILY 03/15/17 03/15/17 History Esomeprazole Magnesium 1 each PO DAILY 03/15/17 03/15/17 History [Esomeprazole] Albuterol/Ipratropium Neb [Duoneb] 3 ml RESP TX TID #90 vial 03/19/17 Rx Estradiol Tab [Estrace Tab] 2 mg PO DAILY #0 03/19/17 03/15/17 Rx Levofloxacin Tab [Levaquin Tab] 750 mg PO DAILY #10 tablet 03/19/17 Rx Allergies Allergy/AdvReac Type Severity Reaction Status Date / Time aripiprazole [From Abilify] AdvReac Severe sucicidal Verified 05/27/17 22:00 ideation pregabalin [From Lyrica] AdvReac Swelling Verified 05/27/17 22:00 of Lip/Tongue/Throat Medical,Surgical,& Family Hx - Medical History Cardio: History of: Hypertension Psychological: History of: Anxiety Disorders, ADHD (Attention), Depression Neurology: History of: Cerebrovascular Accident (2007) Comment Only: Dementia (memory loss from stroke) HEENT: History of: Eye Problem (Reaing glasses), Dental Problems (Full Set Dentures) Endocrine: History of: Thyroid Disorder Rheumatology: History of;: Fibromyalgia, Psoriasis Respiratory: History of: COPD, Pneumonia (2007-ventilator), Respiratory Problems (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 Kay;sarcoidosis) Renal: History of: Renal Problems (chronic renal insufficiency-65% due to antibiotics-Dr. Mendosa) Genitourinary: History of: Bladder Problem (bladder-sudden onset atrophy) Gastrointestinal: History of: GERD, GI Problems (bowel incontinence) No history of: Polyps Musculoskeletal: History of: Musculoskeletal Problems (Arthritis-OA; osteopenia) Other: No history of: Anesthesia Reactions, Cancer - Surgical History Abdominal Surgeries: Surgical HX of: Abdominal Surgery, Colonoscopy Reproductive Surgeries: Surgical HX of;: Breast Surgery (Rt Breast benign; watching lumb lt breast), Hysterectomy (Partial) Orthopedic Surgeries: Surgical HX of;: Total Knee Replacement - Family History Family History: Reports;: Family Cancer (Brother-Lung/bone/colon), Family Diabetes (Mother/brother), Family Heart Disease (Father), Family Hypertension ( Mother/Brother), Family Stroke (Grandfather) - Social History Smoking Status: Never smoker Frequency of Alcohol Use: None Type of Drug Use: None 12 point system: reviewed and no additional remarkable complaints except as stated Exam - Constitutional Vitals: Period Temp Pulse Resp BP Sys/Young Pulse Ox Last 24 Hr 97.5 F-97.5 F 109-109 18-18 88-88/47-47 95 - General General appearance: alert, in no apparent distress chronically ill appearing - Head Head exam: Present: atraumatic, normocephalic temporal wasting - Eye Eye exam: Present: PERRL, EOMI. sunken orbits - ENT ENT exam: Present: mucous membranes dry. - Neck Neck exam: Present: full ROM. - Chest Chest inspection: Present: symmetric chest wall rise. - Respiratory Respiratory exam: Present: grossly clear - Cardiovascular Cardiovascular exam: Present: normal rhythm, tachycardia - Abdominal Exam Abdominal exam: Present: soft, distention, hyperactive bowel sounds - Extremities Exam Extremities exam: Present: full ROM. - Back Exam Back exam: Present: full ROM. - Neurological Exam Neurological exam: Present: alert, oriented X3, CN II-XII intact - Psychiatric Psychiatric exam: Present: normal affect, normal mood - Skin Skin exam: Present: warm, dry, intact, other (poor skin turgor). Absent: rash Results - Labs CBC & BMP: 05/27/17 22:59 05/27/17 22:59
[2017-05-28] MEDS ORDERED: GLUCAGON 1 MG VIAL IM PRN (01:27)
[2017-05-28] MEDS ORDERED: DEXTROSE 50% 25 GM/50 ML SYRINGE IV PRN (01:27)
[2017-05-28] MEDS ORDERED: ALBUTEROL 2.5 MG/3 ML NEB RESP TX PRN (03:30)
[2017-05-28] MEDS: ALBUTEROL/IPRATROPIUM 3 ML NEB RESP TX SCH ×4 (03:40→19:45)
[2017-05-28] MEDS: SODIUM ACETATE 50 MEQ in SODIUM CHLORIDE 0.45% 975 ML IV SCH ×2 (04:04→10:51)
[2017-05-28] MEDS: LEVOTHYROXINE 100 MCG TABLET PO SCH (06:03)
[2017-05-28 07:00] LABS: Basophils % 0.3 % (0.0-0.8); Hematocrit 34.3 VOL% (35.7-47.0); Hemoglobin 11.4 GM/DL (12.0-16.0); Immature Granulocytes % 0.6 %; Immature Granulocytes Absolute 0.04 #; Lymphocytes # 1.1 10*3/uL (1.4-4.0); Lymphocytes % 17.2 % (21.3-54.2); Mean Corpuscular HGB Conc 33.2 GM/DL (32-36); Mean Corpuscular Hemoglobin 24 PG (27-34); Mean Corpuscular Volume 71.5 FL (87-102); Mean Platelet Volume 10.2 FL (9.6-12.0); Monocytes # 0.8 10*3/uL (0.11-0.8); Neutrophils # 4.5 10*3/uL (1.4-7.4); Neutrophils % 69.9 % (38.7-73.9); Platelet Count 237 T/CUMM (130-400); Red Cell Distribution Width 17.7 % (9.3-17.3); White Blood Count 6.4 T/CUMM (4-12)
[2017-05-28 07:04] LABS: Amorphous Crystals,Urine Occasional /HPF (Few); Apearance,Urine CLOUDY (Clear); Bilirubin,Urine Negative (Negative); Blood, Urine Small mg/dL (Negative); Glucose,Urine (UA) Negative (Negative); Ketones,Urine Negative (Negative); Mucus,Urine Occasional /LPF (Occasional); Nitrite,Urine Negative (Negative); Protein,Urine 100 MG/DL; RBC,Urine 2 /HPF (0-4); Urine Color Amber (Yellow); Urine Specific Gravity 1.018 (1.001-1.035); Urine Urobilinogen < 2.0 EU/DL (0.2-1.0); WBC,Urine 1 /HPF (0-6)
--- NOTE | 2017-05-28 07:05 | XRay Report ---
XR abdomen complete w decub Indication: Abdominal pain. Abdomen 3 views: Multiple air-fluid levels are present throughout the abdomen. No free air identified. No small bowel dilatation. Some stool and gas is seen in the colon. Impression: Scattered air-fluid levels consistent with gastroenteritis or ileus. No obstruction. No pneumoperitoneum. PROCEDURE INTERPRETED AT [facility] DEPARTMENT OF RADIOLOGY Final Report Signed by: Avtar Duffy M.D.
--- NOTE | 2017-05-28 07:07 | XRay Report ---
XR chest 1V portable Indication: Abdominal pain. Chest one view: Comparison 03/15/2017. Heart size is normal. Mediastinal contour is unremarkable although there is nodular prominence of the hilar structures. Scattered calcified granulomata are present. Coarsened interstitial markings of the lungs noted centrally and at both lung bases. Lungs are hypoinflated. Dextroscoliosis thoracic spine noted. Impression: hypoinflation, chronic interstitial prominence of the lungs and scattered calcified granulomata. Hilar prominence bilaterally. PROCEDURE INTERPRETED AT [facility] DEPARTMENT OF RADIOLOGY Final Report Signed by: Avtar Duffy M.D.
[2017-05-28 07:25] LABS: Burr Cells 1+; Polychromasia Slight
[2017-05-28 07:32] LABS: Albumin 2.9 G/DL (3.4-5.0); Bilirubin,Total 0.7 MG/DL (0.2-1.0); Calcium 8.4 MG/DL (8.5-10.1); Osmolality,Calculated 283.1 MOS/KG (273-304); Potassium 3.2 MMOL/L (3.5-5.1); Total Protein 6.4 G/DL (6.4-8.3)
[2017-05-28 07:38] LABS: Free T4 (Free Thyroxine) 1.79 NG/DL (0.76-1.46); Thyroid Stimulating Hormone 2.08 uIU/ml (0.358-3.74)
[2017-05-28] MEDS: INSULIN REGULAR 100 UNIT/ML SUBCUT SCH ×4 (07:56→22:08)
[2017-05-28] MEDS: ESTRADIOL 2 MG TABLET PO SCH (08:42)
[2017-05-28] MEDS: buPROPion SR 150 MG TABLET PO SCH ×2 (08:42→20:35)
[2017-05-28] MEDS: rOPINIRole 1 MG TABLET PO SCH ×2 (08:42→20:35)
[2017-05-28] MEDS: PANTOPRAZOLE 40 MG TABLET PO SCH (08:42)
[2017-05-28] MEDS: FLUCONAZOLE 200 MG TABLET PO SCH (08:42)
[2017-05-28] MEDS: POTASSIUM CHLORIDE RIDER 10 MEQ in PREMIX 1 EACH IV PRN ×4 (10:51→20:36)
[2017-05-28] MEDS: ACETAMINOPHEN 325 MG TABLET PO PRN (11:46)
[2017-05-28] MEDS: LOVASTATIN 20 MG TABLET PO SCH (17:15)
--- NOTE | 2017-05-28 17:30 | Post Interventional Procedure ---
Pre-op diagnosis: COPD, dehydration, metabolic acidosis, poor venous access, renal failure Post-op diagnosis: same Procedure: central venous catheter placement Contrast: noen Flouroscopy: 0.1 min Radiologist: Jesús Huang Anesthesia: local Specimens: none sent Estimated blood loss: minimal (5mL) Complications: none Condition: stable Description/Findings: Right IJ triple lumen central venous catheter placement done and ready for use. patient tolerated well. Assessment and Plan - Time spent with patient Time spent with patient: Less than 30 minutes
--- NOTE | 2017-05-28 17:34 | Ultrasound Report ---
US guide vascular access, IR cvc insert nt >5, IR fluoro guide cv cath Central Line placement using fluoroscopic and ultrasound guidance Ultrasound of the right neck Clinical Information: 67 year old female with chronic renal failure and COPD, dehydration, diarrhea, gastroenteritis and metabolic acidosis. Patient has poor venous access and requires Central venous catheter placement. Physician[s]: Dr. Huang Procedure: The patient was advised of the benefits, risks, and alternatives of the procedure and informed consent was obtained. A time out was performed with verification of the patient's name, MRN, site of procedure, and type of procedure to be performed. The patient was positioned in the supine position on the angiographic table. The site was prepped and draped in the usual sterile fashion. Local anesthesia only was used for the procedure. A boat buffer plastic radiograph reveals no relevant abnormality. The neck and anterior chest wall were anesthetized with lidocaine. The right internal jugular vein was accessed using a microintroducer needle via an anterior approach with ultrasound guidance. Ultrasound image capture of vascular access was obtained for the patient's permanent record. A 0.018" cope wire was advanced into the superior vena cava, the needle was removed and a microintroducer sheath was placed. An Amplatz wire was then passed into the inferior vena cava. An incision was made at the puncture site using a scalpel. The tract was serially dilated over the wire. A 7 Trin[place] triple lumen 20 cm Arrow central venous catheter was placed with its tip at the cavoatrial junction under fluoroscopic guidance. The ports aspirate and flush freely. The catheter was sutured in place using 3-0 silk and covered with a sterile dressing. The patient tolerated the procedure well and was returned to the PRU in stable condition. EBL: < 5 mL. Complications: None. Total Fluoroscopy Time: 0.1 minutes. Total number of images for the procedure: 3 Conclusion: Successful placement of a triple lumen central venous catheter via the right internal jugular vein. The catheter is ready for immediate use. PROCEDURE INTERPRETED AT [facility] DEPARTMENT OF RADIOLOGY Final Report Signed by: Jesús Huang
[2017-05-28] MEDS: MIRTAZAPINE 15 MG TABLET PO SCH (20:35)
[2017-05-29] MEDS: POTASSIUM CHLORIDE RIDER 10 MEQ in PREMIX 1 EACH IV PRN ×7 (02:57→16:53)
[2017-05-29] MEDS: SODIUM ACETATE 50 MEQ in SODIUM CHLORIDE 0.45% 975 ML IV SCH ×4 (06:05→17:43)
[2017-05-29] MEDS: LEVOTHYROXINE 100 MCG TABLET PO SCH (06:07)
[2017-05-29] MEDS: ALBUTEROL/IPRATROPIUM 3 ML NEB RESP TX SCH ×3 (07:41→19:58)
[2017-05-29] MEDS: INSULIN REGULAR 100 UNIT/ML SUBCUT SCH ×4 (08:10→21:31)
[2017-05-29] MEDS: ESTRADIOL 2 MG TABLET PO SCH (09:40)
[2017-05-29] MEDS: PANTOPRAZOLE 40 MG TABLET PO SCH (09:40)
[2017-05-29] MEDS: rOPINIRole 1 MG TABLET PO SCH ×2 (09:41→21:31)
[2017-05-29] MEDS: DESITIN 4OZ/NYSTATIN 15 GRAM MIXTURE PASTE TOP SCH ×2 (09:41→21:31)
[2017-05-29] MEDS: buPROPion SR 150 MG TABLET PO SCH ×2 (09:41→21:30)
[2017-05-29] MEDS: FLUCONAZOLE 200 MG TABLET PO SCH (09:41)
[2017-05-29] MEDS: DIPHENOXYLATE/ATROPINE 2.5-0.025 MG TABLET PO PRN (11:27)
--- NOTE | 2017-05-29 13:09 | Hospitalist Progress Note ---
Assessment and Plan (1) ARF (acute renal failure) Status: Acute Assessment and plan: Continue with IVF, consider Nephrology consult. Plan BMP in am. Continue to avoid nephrotoxics Current Visit: Yes (2) Diarrhea Status: Acute Assessment and plan: Stool studies plus C. difficile are negative. plan lomotil prn Current Visit: Yes (3) COPD (chronic obstructive pulmonary disease) Status: Acute Assessment and plan: stable Current Visit: Yes (4) Generalized weakness Status: Acute Assessment and plan: patient has a history of fibromyalgia. consider PT Current Visit: Yes (5) Metabolic acidosis Status: Resolved Assessment and plan: continue current IVF, follow Bmp, Nephrology to see. Current Visit: No (6) Sarcoidosis Status: Acute Assessment and plan: stable on meds Current Visit: Yes (7) Hypothyroidism Status: Acute Assessment and plan: continue with supplements Current Visit: No (8) History of meningitis Status: Acute Assessment and plan: stable Current Visit: Yes (9) Dyslipidemia Status: Acute Assessment and plan: on statins Current Visit: Yes (10) Gastroenteritis Status: Acute Assessment and plan: nausea and vomiting have improved, diarrhoea is still present though stool studies are negative.Symptoms may be due to opoiods withdrawal, patient's pain meds were recently dcd in the clinic. Plan supportive measures. Current Visit: Yes Hospitalist: Subjective Interval history: She states she feels only slightly better. Still having some diarrhoea but nausea and vomiting have improved.Her pain meds were reportedly dcd recently in clinic so she may be having some withdrawal symptoms as well Exam - Constitutional Vitals: Period Temp Pulse Resp BP Sys/Young Pulse Ox Last 24 Hr 96.6 F-97.8 F 79-95 17-20 103-131/51-65 94-98 General appearance: no acute distress - Head Head exam: Present: normal inspection - Respiratory Respiratory exam: Present: clear to auscultation bilaterally - Cardiovascular Cardiovascular exam: Present: regular rate and rhythm - GI/Abdominal GI/Abdominal exam: Present: normal bowel sounds - Extremities Exam Extremities exam: Present: normal inspection - Neurological Exam Neurological exam: Present: alert, oriented X3 Results - Labs CBC & BMP: 05/28/17 06:24 05/29/17 09:46 Lab Results: I have reviewed the past 24 hour labs
[2017-05-29] MEDS: LOVASTATIN 20 MG TABLET PO SCH (16:55)
[2017-05-29] MEDS: MIRTAZAPINE 15 MG TABLET PO SCH (21:31)
[2017-05-30] MEDS: SODIUM ACETATE 50 MEQ in SODIUM CHLORIDE 0.45% 975 ML IV SCH ×2 (04:52→10:21)
[2017-05-30 06:47] LABS: Basophils % 0.3 % (0.0-0.8); Eosinophils % 0.5 % (0.00-10.9); Hematocrit 31.9 VOL% (35.7-47.0); Hemoglobin 10.7 GM/DL (12.0-16.0); Immature Granulocytes % 0.5 %; Immature Granulocytes Absolute 0.03 #; Lymphocytes # 0.8 10*3/uL (1.4-4.0); Mean Corpuscular HGB Conc 33.5 GM/DL (32-36); Mean Corpuscular Hemoglobin 24 PG (27-34); Mean Corpuscular Volume 71.5 FL (87-102); Mean Platelet Volume 10.2 FL (9.6-12.0); Monocytes # 0.6 10*3/uL (0.11-0.8); Monocytes % 8.8 % (1.7-12.7); Neutrophils # 4.9 10*3/uL (1.4-7.4); Neutrophils % 77.9 % (38.7-73.9); Platelet Count 191 T/CUMM (130-400); Red Blood Count 4.46 MC/CUMM (3.8-5.5); Red Cell Distribution Width 17.6 % (9.3-17.3); White Blood Count 6.3 T/CUMM (4-12)
[2017-05-30] MEDS: ALBUTEROL/IPRATROPIUM 3 ML NEB RESP TX SCH ×3 (07:09→19:18)
[2017-05-30 07:12] LABS: Calcium 8.4 MG/DL (8.5-10.1); Osmolality,Calculated 280.1 MOS/KG (273-304); Potassium 3.1 MMOL/L (3.5-5.1)
[2017-05-30 07:21] LABS: Band Neutrophils 3 % (0-10); Hypochromasia 1+; Lymphocytes 11 % (20-55); Microcytosis 1+; Ovalocytes Slight; Segmented Neutrophils 80 % (50-85); Total Cells Counted 100
[2017-05-30 07:22] LABS: Platelet Estimate Adequate
[2017-05-30] MEDS: INSULIN REGULAR 100 UNIT/ML SUBCUT SCH ×4 (07:30→22:06)
[2017-05-30] MEDS: PANTOPRAZOLE 40 MG TABLET PO SCH (09:12)
[2017-05-30] MEDS: DIPHENOXYLATE/ATROPINE 2.5-0.025 MG TABLET PO PRN ×2 (09:13→16:50)
[2017-05-30] MEDS: ESTRADIOL 2 MG TABLET PO SCH (09:18)
[2017-05-30] MEDS: rOPINIRole 1 MG TABLET PO SCH ×2 (09:18→21:20)
[2017-05-30] MEDS: buPROPion SR 150 MG TABLET PO SCH ×2 (09:18→21:20)
[2017-05-30] MEDS: LEVOTHYROXINE 100 MCG TABLET PO SCH (09:18)
[2017-05-30] MEDS: FLUCONAZOLE 200 MG TABLET PO SCH (09:20)
[2017-05-30] MEDS: CIPROFLOXACIN INJ 400 MG in PREMIX 1 EACH IV SCH ×2 (09:23→21:20)
[2017-05-30] MEDS: DESITIN 4OZ/NYSTATIN 15 GRAM MIXTURE PASTE TOP SCH ×2 (09:30→21:23)
[2017-05-30] MEDS: POTASSIUM CHLORIDE RIDER 20 MEQ in PREMIX 1 EACH IV PRN ×2 (10:26→14:58)
--- NOTE | 2017-05-30 10:28 | Nephrology Consult Note ---
History of Present Illness Chief complaint: Acute renal failure with diarrhea History of present illness: Ms. Carey is a 67 year old female who was admitted on 05/28/2017 with about a 4 day history of nausea vomiting and diarrhea. The patient states her symptoms started acutely about 4 days prior to her admission. She continued to have watery stool up until the time of admission and continues during this admission. The patient has a history of acute renal failure as well as chronic kidney disease. She relates to me that her kidney function when I saw her in the office about a year ago was around 50% of normal. The patient since her admission has had an improvement in her creatinine from 6 mg/dL down to around 2.5 mg/dL today. She has been getting IV fluids with half-normal saline and amp of sodium acetate at about 125 cc an hour. She is also receiving Cipro antibiotic therapy. The patient has gram-negative rods growing out of 2 blood culture bottles as well as her stool. The patient had some associated abdominal pain on the right side initially when she started to have the nausea vomiting and diarrhea. She denies any fever ROS: Head -patient states she used to have migraine headaches however they stopped after having a stroke several years ago ENT - denies sore throat Lymphatics - denies lymphadenopathy Hematology - denies bleeding problems Heart - denies chest pain, the patient states she used to have high blood pressure but about 2-3 months ago she developed pneumonia and since then has not been taking any blood pressure medicines due to lowish blood pressure Lungs - denies shortness of breath Abdomen -see HPI Musculoskeletal -positive arthritis, she denies nonsteroidal anti-inflammatory drug use Skin - denies rash Neurology -positive stroke General - denies fever PE: General: in no acute distress Eyes: Pupils are round and reactive, conjunctivae are clear ENT: Nose is clear, O/P is benign Neck: Supple, no thyromegaly Lymphatics: No cervical, supraclavicular or axillary adenopathy Heart: Regular rate and rhythm, no edema Lungs: Clear to auscultation anteriorly, chest expansion symmetric Abdomen: Soft, normoactive bowel sounds, no hepatomegaly Musculoskeletal: No joint erythema or effusions or joint asymmetry Skin: Normal turgor, normal hydration, no rash Neuro/Psych: Alert and cooperative with fair insight Home Medications Medication Instructions Recorded Confirmed Type Fluconazole 200 mg PO DAILY 06/27/15 05/28/17 History Levothyroxine Tab [Synthroid Tab] 100 mcg PO DAILY 06/27/15 05/28/17 History Lovastatin 20 mg PO DAILY W/SUPPER 06/27/15 05/28/17 History Mirtazapine 15 mg PO BEDTIME 06/27/15 05/28/17 History Ropinirole HCl 2 mg PO QAM 06/27/15 05/28/17 History Ropinirole HCl [Requip] 4 mg PO BEDTIME 06/27/15 05/28/17 History buPROPion SR [Wellbutrin Sr] 150 mg PO BID 06/27/15 05/28/17 History Albuterol Sulfate [Ventolin HFA] 2 puff INH Q4H PRN 11/15/16 05/28/17 History Esomeprazole Magnesium 1 each PO DAILY 03/15/17 05/28/17 History [Esomeprazole] Estradiol Tab [Estrace Tab] 2 mg PO DAILY #0 03/19/17 05/28/17 Rx Albuterol/Ipratropium Neb [Duoneb] 3 ml RESP TX TID PRN 05/28/17 05/28/17 History Allergies Allergy/AdvReac Type Severity Reaction Status Date / Time aripiprazole [From Abilify] AdvReac Severe sucicidal Verified 05/27/17 22:00 ideation pregabalin [From Lyrica] AdvReac Swelling Verified 05/27/17 22:00 of Lip/Tongue/Throat Medical,Surgical,& Family Hx - Medical History Cardio: History of: Hypertension Psychological: History of: Anxiety Disorders, ADHD (Attention), Depression Neurology: History of: Cerebrovascular Accident (2007) Comment Only: Dementia (memory loss from stroke) HEENT: History of: Eye Problem (Reaing glasses), Dental Problems (Full Set Dentures) Comment Only: HEENT Problems (Jaw extension surgery 1996) Endocrine: History of: Thyroid Disorder Rheumatology: History of;: Fibromyalgia, Psoriasis Respiratory: History of: COPD, Pneumonia (2008-ventilator), Respiratory Problems (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 Kay;sarcoidosis) Renal: History of: Renal Problems (chronic renal insufficiency-65% due to antibiotics-Dr. Mendosa) Genitourinary: History of: Bladder Problem (bladder-sudden onset atrophy) Gastrointestinal: History of: GERD, GI Problems (bowel incontinence) No history of: Polyps Musculoskeletal: History of: Musculoskeletal Problems (Arthritis-OA; osteopenia) Other: No history of: Anesthesia Reactions, Cancer - Surgical History Cardiac Surgeries: Patient Denies: Cardiac Surgery Thoracic Surgeries: Patient denies;: Organ Transplant, Lobectomy Neurologic Surgeries: Patient denies: Neurologic Surgery Abdominal Surgeries: Surgical HX of: Abdominal Surgery ("Small intestine resection in 2015"), Colonoscopy Reproductive Surgeries: Surgical HX of;: Breast Surgery (Rt Breast benign; watching lumb lt breast), Genitourinary Surgery ("Bladder tack" surgery in 1996) , Hysterectomy (Partial 1985) Orthopedic Surgeries: Surgical HX of;: Total Knee Replacement (Left knee 2014) - Family History Family History: Reports;: Family Cancer (Brother-Lung/bone/colon), Family Diabetes (Mother/brother), Family Heart Disease (Father), Family Hypertension ( Mother/Brother), Family Stroke (Grandfather/mother) - Social History Smoking Status: Never smoker Frequency of Alcohol Use: None Type of Drug Use: None Exam - Vital Signs Vital signs: Period Temp Pulse Resp BP Sys/Young Pulse Ox Last 24 Hr 97.4 F-98.4 F 73-85 14-20 103-120/42-81 95-99 Results - Labs CBC & BMP: 05/30/17 06:22 05/30/17 06:22 Assessment and Plan (1) ARF (acute renal failure) Status: Acute Assessment and plan: This patient seems to have developed acute renal failure on chronic kidney disease related to volume depletion. She is responding to IV fluids. Current Visit: Yes (2) History of hypertension Status: Acute Current Visit: Yes (3) Chronic kidney disease Status: Acute Assessment and plan: In speaking with the patient and sounds like she has a GFR of around 50 mL's per minute at baseline Current Visit: Yes (4) Dehydration Status: Acute Current Visit: Yes (5) Diarrhea Status: Acute Assessment and plan: Continue Cipro, follow-up blood and stool cultures for sensitivities Current Visit: Yes (6) History of meningitis Status: Acute Current Visit: Yes (7) CVA (cerebral vascular accident) Status: Acute Current Visit: No (8) History of psoriasis Status: Acute Current Visit: No (9) Anemia Status: Acute Assessment and plan: Patient's hematocrits around 31% Current Visit: Yes (10) Hypokalemia Status: Acute Assessment and plan: I will adjust her IV fluids. Current Visit: Yes
--- NOTE | 2017-05-30 12:02 | Hospitalist Progress Note ---
Assessment and Plan (1) ARF (acute renal failure) Status: Acute Assessment and plan: improving with IVF, appreciates Nephrology's consult. Plan BMP in am. Continue to avoid nephrotoxics Current Visit: Yes (2) Diarrhea Status: Acute Assessment and plan: Stool C. difficile is negative though culture grew gram negative rods plan lomotil prn Start IV Cipro Current Visit: Yes (3) COPD (chronic obstructive pulmonary disease) Status: Acute Assessment and plan: stable Current Visit: Yes (4) Generalized weakness Status: Acute Assessment and plan: patient has a history of fibromyalgia.This is most likely multifactorial- bacteremia, electrolytes derrangement PT and continue to treat the underlying cause Current Visit: Yes (5) Metabolic acidosis Status: Resolved Assessment and plan: Improving, follow Nephrology's recommendations. Follow Bmp in am. Current Visit: No (6) Sarcoidosis Status: Acute Assessment and plan: stable on meds Current Visit: Yes (7) Hypothyroidism Status: Acute Assessment and plan: continue with supplements Current Visit: No (8) History of meningitis Status: Acute Assessment and plan: stable Current Visit: Yes (9) Dyslipidemia Status: Acute Assessment and plan: on statins Current Visit: Yes (10) Gastroenteritis Status: Acute Assessment and plan: nausea and vomiting have improved, diarrhoea is still present though stool studies are negative.Symptoms may be due to opoiods withdrawal, patient's pain meds were recently dcd in the clinic.Stool culture was also positive for gram negative rods Plan supportive measures. Start IV Cipro Current Visit: Yes (11) Gram-negative bacteremia Status: Acute Assessment and plan: start IV cipro, follow sensitivity. Current Visit: Yes (12) Hypokalemia Status: Acute Assessment and plan: will continue to replete, get a Mg level. Current Visit: Yes Hospitalist: Subjective Interval history: Patient seen. She was still pretty weak.Blood cultures and stool cultures grew gram negative Rods.She is still have bouts of diarrhoea though her stool difficile is negative. Exam - Constitutional Vitals: Period Temp Pulse Resp BP Sys/Young Pulse Ox Last 24 Hr 98.1 F-98.4 F 73-85 14-20 111-120/42-81 92-99 General appearance: no acute distress, other (weak) - Head Head exam: Present: normal inspection - Respiratory Respiratory exam: Present: clear to auscultation bilaterally - Cardiovascular Cardiovascular exam: Present: regular rate and rhythm - GI/Abdominal GI/Abdominal exam: Present: normal bowel sounds - Extremities Exam Extremities exam: Present: normal inspection - Neurological Exam Neurological exam: Present: alert, oriented X3 Results - Labs CBC & BMP: 05/30/17 06:22 05/30/17 06:22 Lab Results: I have reviewed the past 24 hour labs
[2017-05-30] MEDS ORDERED: POTASSIUM CHLORIDE 20 MEQ/15 ML UDCUP PO ONE (12:08)
[2017-05-30] MEDS: DEXT 5% NACL 0.45% KCL 20 MEQ 20 MEQ/1,000 ML BAG IV SCH (13:08)
[2017-05-30] MEDS: ONDANSETRON 4 MG/2 ML VIAL IV PRN (17:06)
[2017-05-30] MEDS: LOVASTATIN 20 MG TABLET PO SCH (17:15)
[2017-05-30] MEDS: MIRTAZAPINE 15 MG TABLET PO SCH (21:20)
[2017-05-31 05:41] LABS: Basophils % 0.2 % (0.0-0.8); Eosinophils # 0.1 10*3/uL (0.0-0.87); Eosinophils % 1.2 % (0.00-10.9); Hematocrit 31.5 VOL% (35.7-47.0); Hemoglobin 10.2 GM/DL (12.0-16.0); Immature Granulocytes Absolute 0.06 #; Lymphocytes # 0.9 10*3/uL (1.4-4.0); Lymphocytes % 15.9 % (21.3-54.2); Mean Corpuscular HGB Conc 32.4 GM/DL (32-36); Mean Corpuscular Hemoglobin 24 PG (27-34); Mean Corpuscular Volume 73.9 FL (87-102); Mean Platelet Volume 9.6 FL (9.6-12.0); Monocytes # 0.6 10*3/uL (0.11-0.8); Monocytes % 9.7 % (1.7-12.7); Neutrophils # 4.2 10*3/uL (1.4-7.4); Platelet Count 192 T/CUMM (130-400); Red Blood Count 4.26 MC/CUMM (3.8-5.5); Red Cell Distribution Width 18.5 % (9.3-17.3); White Blood Count 5.8 T/CUMM (4-12)
[2017-05-31] MEDS: LEVOTHYROXINE 100 MCG TABLET PO SCH (06:02)
[2017-05-31 06:11] LABS: Hypochromasia 1+; Microcytosis 1+; Ovalocytes Few
[2017-05-31 06:12] LABS: Platelet Estimate Adequate
[2017-05-31 06:23] LABS: Calcium 8.3 MG/DL (8.5-10.1); Magnesium 2.6 MG/DL (1.8-2.4); Osmolality,Calculated 280.8 MOS/KG (273-304); Potassium 4.1 MMOL/L (3.5-5.1)
[2017-05-31] MEDS: ALBUTEROL/IPRATROPIUM 3 ML NEB RESP TX SCH ×3 (07:38→19:16)
[2017-05-31] MEDS: INSULIN REGULAR 100 UNIT/ML SUBCUT SCH ×4 (07:51→20:54)
[2017-05-31] MEDS: CIPROFLOXACIN INJ 400 MG in PREMIX 1 EACH IV SCH ×2 (08:58→20:19)
[2017-05-31] MEDS: DEXT 5% NACL 0.45% KCL 20 MEQ 20 MEQ/1,000 ML BAG IV SCH ×2 (08:58→23:55)
[2017-05-31] MEDS: rOPINIRole 1 MG TABLET PO SCH ×2 (08:59→20:19)
[2017-05-31] MEDS: ESTRADIOL 2 MG TABLET PO SCH (08:59)
[2017-05-31] MEDS: PANTOPRAZOLE 40 MG TABLET PO SCH (08:59)
[2017-05-31] MEDS: buPROPion SR 150 MG TABLET PO SCH ×2 (08:59→20:19)
[2017-05-31] MEDS: FLUCONAZOLE 200 MG TABLET PO SCH (08:59)
[2017-05-31] MEDS: DESITIN 4OZ/NYSTATIN 15 GRAM MIXTURE PASTE TOP SCH ×2 (09:00→20:19)
--- NOTE | 2017-05-31 12:39 | Hospitalist Progress Note ---
Assessment and Plan (1) ARF (acute renal failure) Status: Acute Assessment and plan: improving with IVF, appreciates Nephrology's consult. Plan BMP in am. Continue to avoid nephrotoxics Current Visit: Yes (2) Diarrhea Status: Acute Assessment and plan: Slowly improving.Stool C. difficile is negative though culture grew Samonella. plan lomotil prn Continue IV Cipro contact Isolation ID consult Current Visit: Yes (3) COPD (chronic obstructive pulmonary disease) Status: Acute Assessment and plan: stable Current Visit: Yes (4) Generalized weakness Status: Acute Assessment and plan: patient has a history of fibromyalgia.This is most likely multifactorial- bacteremia, electrolytes derrangement PT and continue to treat the underlying cause Current Visit: Yes (5) Metabolic acidosis Status: Resolved Assessment and plan: Improving, follow Nephrology's recommendations. Follow Bmp in am. Current Visit: No (6) Sarcoidosis Status: Acute Assessment and plan: stable on meds Current Visit: Yes (7) Hypothyroidism Status: Acute Assessment and plan: continue with supplements Current Visit: No (8) History of meningitis Status: Acute Assessment and plan: stable Current Visit: Yes (9) Dyslipidemia Status: Acute Assessment and plan: on statins Current Visit: Yes (10) Gastroenteritis Status: Acute Assessment and plan: due to Samonella. Symptoms improving Plan supportive measures. Continue IV Cipro Current Visit: Yes (11) Gram-negative bacteremia Status: Acute Assessment and plan: BC grew Samonella. Continue with IV cipro Current Visit: Yes (12) Hypokalemia Status: Acute Assessment and plan: repleted Current Visit: Yes Hospitalist: Subjective Interval history: Patient seen, she feels slightly better though still weak. BC,SC grew salmonella.Diarrhoea has improved Exam - Constitutional Vitals: Period Temp Pulse Resp BP Sys/Young Pulse Ox Last 24 Hr 96.9 F-98.6 F 67-81 16-20 105-122/54-72 92-99 General appearance: no acute distress - Head Head exam: Present: normal inspection - Respiratory Respiratory exam: Present: clear to auscultation bilaterally - Cardiovascular Cardiovascular exam: Present: regular rate and rhythm - GI/Abdominal GI/Abdominal exam: Present: normal bowel sounds - Extremities Exam Extremities exam: Present: normal inspection - Neurological Exam Neurological exam: Present: alert, oriented X3 Results - Labs CBC & BMP: 05/31/17 05:24 05/31/17 05:24 Lab Results: I have reviewed the past 24 hour labs
--- NOTE | 2017-05-31 14:36 | Nephrology Progress Note ---
Nephrology - PN: Subj Interval history: Patient is feeling better. She denies shortness of breath. Review of systems GI-the patient states her diarrhea is locking up some Physical exam general patient is in no acute distress Assessment/plan 1. Acute renal failure-patient's creatinine continues to improve 2. Diarrhea this is improving 3. Chronic kidney disease 4. Anemia Exam (PN)-Nephrology - Vital Signs Vital signs: Period Temp Pulse Resp BP Sys/Young Pulse Ox Last 24 Hr 96.9 F-98.6 F 67-87 16-20 105-122/53-72 92-100 - Lab 05/31/17 05:24 05/31/17 05:24 Most recent lab results ABG pH 7.344 (7.35-7.45) L 05/28/17 00:17 ABG pCO2 27.1 MM HG (35-48) L 05/28/17 00:17 ABG pO2 131.5 MM HG (80-95) H 05/28/17 00:17 ABG HCO3 14.4 MMOL/L (20-26) L 05/28/17 00:17 ABG O2 Saturation 98.0 % (95-100) 05/28/17 00:17 Calcium 8.3 MG/DL (8.5-10.1) L 05/31/17 05:24 Magnesium 2.6 MG/DL (1.8-2.4) H 05/31/17 05:24 Assessment and Plan (1) ARF (acute renal failure) Status: Acute Assessment and plan: This patient seems to have developed acute renal failure on chronic kidney disease related to volume depletion. She is responding to IV fluids. Current Visit: Yes (2) History of hypertension Status: Acute Current Visit: Yes (3) Chronic kidney disease Status: Acute Assessment and plan: In speaking with the patient and sounds like she has a GFR of around 50 mL's per minute at baseline Current Visit: Yes (4) Dehydration Status: Acute Current Visit: Yes (5) Diarrhea Status: Acute Assessment and plan: Continue Cipro, follow-up blood and stool cultures for sensitivities Current Visit: Yes (6) History of meningitis Status: Acute Current Visit: Yes (7) CVA (cerebral vascular accident) Status: Acute Current Visit: No (8) History of psoriasis Status: Acute Current Visit: No (9) Anemia Status: Acute Assessment and plan: Patient's hematocrits around 31% Current Visit: Yes (10) Hypokalemia Status: Acute Assessment and plan: I will adjust her IV fluids. Current Visit: Yes
[2017-05-31] MEDS: LOVASTATIN 20 MG TABLET PO SCH (17:45)
[2017-05-31] MEDS: MIRTAZAPINE 15 MG TABLET PO SCH (20:18)
[2017-06-01 06:15] LABS: Basophils % 0.3 % (0.0-0.8); Eosinophils # 0.2 10*3/uL (0.0-0.87); Eosinophils % 2.2 % (0.00-10.9); Hematocrit 30.9 VOL% (35.7-47.0); Hemoglobin 10.2 GM/DL (12.0-16.0); Immature Granulocytes Absolute 0.07 #; Lymphocytes # 1.2 10*3/uL (1.4-4.0); Lymphocytes % 16.1 % (21.3-54.2); Mean Corpuscular Hemoglobin 24 PG (27-34); Mean Corpuscular Volume 73.6 FL (87-102); Mean Platelet Volume 9.6 FL (9.6-12.0); Monocytes # 0.6 10*3/uL (0.11-0.8); Monocytes % 8.7 % (1.7-12.7); Neutrophils # 5.2 10*3/uL (1.4-7.4); Neutrophils % 71.7 % (38.7-73.9); Platelet Count 204 T/CUMM (130-400); Red Cell Distribution Width 18.5 % (9.3-17.3); White Blood Count 7.3 T/CUMM (4-12)
[2017-06-01] MEDS: LEVOTHYROXINE 100 MCG TABLET PO SCH (06:19)
[2017-06-01 06:41] LABS: Hypochromasia 1+
[2017-06-01 06:51] LABS: Calcium 8.5 MG/DL (8.5-10.1); Osmolality,Calculated 280.5 MOS/KG (273-304); Potassium 3.7 MMOL/L (3.5-5.1)
--- NOTE | 2017-06-01 07:05 | Nephrology Progress Note ---
Nephrology - PN: Subj Interval history: Patient states she had some mild recurrence of her diarrhea. Review of systems pulmonary she denies shortness of breath Physical exam general the patient in no acute distress, she has no pitting edema Assessment/plan 1. Acute renal failure-patient's creatinine has decreased to 1.4 mg/dL 2. Diarrhea-patient's had Salmonella grow out of her stool cultures it is sensitive to Cipro which she is getting 3. Anemia 4. Hypokalemia we will continue replacement with potassium and IV fluids 5. Metabolic acidosis-I am going to add some sodium bicarbonate to her IV fluids Exam (PN)-Nephrology - Vital Signs Vital signs: Period Temp Pulse Resp BP Sys/Young Pulse Ox Last 24 Hr 96.9 F-98.5 F 67-94 16-20 97-138/53-78 93-100 - Lab 06/01/17 05:31 06/01/17 05:31 Most recent lab results ABG pH 7.344 (7.35-7.45) L 05/28/17 00:17 ABG pCO2 27.1 MM HG (35-48) L 05/28/17 00:17 ABG pO2 131.5 MM HG (80-95) H 05/28/17 00:17 ABG HCO3 14.4 MMOL/L (20-26) L 05/28/17 00:17 ABG O2 Saturation 98.0 % (95-100) 05/28/17 00:17 Calcium 8.5 MG/DL (8.5-10.1) 06/01/17 05:31 Magnesium 2.6 MG/DL (1.8-2.4) H 05/31/17 05:24 Assessment and Plan (1) ARF (acute renal failure) Status: Acute Assessment and plan: This patient seems to have developed acute renal failure on chronic kidney disease related to volume depletion. She is responding to IV fluids. Current Visit: Yes (2) History of hypertension Status: Acute Current Visit: Yes (3) Chronic kidney disease Status: Acute Assessment and plan: In speaking with the patient and sounds like she has a GFR of around 50 mL's per minute at baseline Current Visit: Yes (4) Dehydration Status: Acute Current Visit: Yes (5) Diarrhea Status: Acute Assessment and plan: Continue Cipro, follow-up blood and stool cultures for sensitivities Current Visit: Yes (6) History of meningitis Status: Acute Current Visit: Yes (7) CVA (cerebral vascular accident) Status: Acute Current Visit: No (8) History of psoriasis Status: Acute Current Visit: No (9) Anemia Status: Acute Assessment and plan: Patient's hematocrits around 31% Current Visit: Yes (10) Hypokalemia Status: Acute Assessment and plan: I will adjust her IV fluids. Current Visit: Yes
[2017-06-01] MEDS: ALBUTEROL/IPRATROPIUM 3 ML NEB RESP TX SCH ×3 (07:46→19:38)
[2017-06-01] MEDS: rOPINIRole 1 MG TABLET PO SCH ×2 (09:36→20:45)
[2017-06-01] MEDS: buPROPion SR 150 MG TABLET PO SCH ×2 (09:36→20:45)
[2017-06-01] MEDS: FLUCONAZOLE 200 MG TABLET PO SCH (09:36)
[2017-06-01] MEDS: PANTOPRAZOLE 40 MG TABLET PO SCH (09:36)
[2017-06-01] MEDS: ESTRADIOL 2 MG TABLET PO SCH (09:36)
[2017-06-01] MEDS: INSULIN REGULAR 100 UNIT/ML SUBCUT SCH ×4 (09:37→20:44)
[2017-06-01] MEDS: SODIUM BICARB IV SCH (09:37)
[2017-06-01] MEDS: CIPROFLOXACIN INJ 400 MG in PREMIX 1 EACH IV SCH ×2 (09:37→20:45)
[2017-06-01] MEDS: DEXTROSE 5% IV SCH (09:37)
[2017-06-01] MEDS: POTASSIUM CHLORIDE IV SCH (09:37)
[2017-06-01] MEDS: DESITIN 4OZ/NYSTATIN 15 GRAM MIXTURE PASTE TOP SCH ×2 (09:39→20:45)
--- NOTE | 2017-06-01 12:55 | Hospitalist Progress Note ---
Assessment and Plan (1) ARF (acute renal failure) Status: Acute Assessment and plan: improving with IVF, appreciates Nephrology is following Plan BMP in am. Continue to avoid nephrotoxics Current Visit: Yes (2) Diarrhea Status: Acute Assessment and plan: Slowly improving.Stool C. difficile is negative though culture grew Samonella. plan lomotil prn Continue IV Cipro contact Isolation ID consult Current Visit: Yes (3) COPD (chronic obstructive pulmonary disease) Status: Acute Assessment and plan: stable Current Visit: Yes (4) Generalized weakness Status: Acute Assessment and plan: patient has a history of fibromyalgia.This is most likely multifactorial- bacteremia, electrolytes derrangement. This is improving. PT and continue to treat the underlying cause Current Visit: Yes (5) Metabolic acidosis Status: Resolved Assessment and plan: Improving, follow Nephrology's recommendations. Follow Bmp in am. Current Visit: No (6) Sarcoidosis Status: Acute Assessment and plan: stable on meds Current Visit: Yes (7) Hypothyroidism Status: Acute Assessment and plan: continue with supplements Current Visit: No (8) History of meningitis Status: Acute Assessment and plan: stable Current Visit: Yes (9) Dyslipidemia Status: Acute Assessment and plan: on statins Current Visit: Yes (10) Gastroenteritis Status: Acute Assessment and plan: due to Samonella. Symptoms improving Plan supportive measures. Continue IV Cipro Current Visit: Yes (11) Gram-negative bacteremia Status: Acute Assessment and plan: BC grew Samonella. Continue with IV cipro Current Visit: Yes (12) Hypokalemia Status: Acute Assessment and plan: repleted Current Visit: Yes Hospitalist: Subjective Interval history: She feels better today, she was requesting for her diet to be advanced. Exam - Constitutional Vitals: Period Temp Pulse Resp BP Sys/Young Pulse Ox Last 24 Hr 97 F-98.5 F 70-94 16-20 97-138/56-78 93-100 General appearance: no acute distress - Head Head exam: Present: normal inspection - Respiratory Respiratory exam: Present: clear to auscultation bilaterally - Cardiovascular Cardiovascular exam: Present: regular rate and rhythm - GI/Abdominal GI/Abdominal exam: Present: normal bowel sounds - Extremities Exam Extremities exam: Present: normal inspection - Neurological Exam Neurological exam: Present: alert, oriented X3 Results - Labs CBC & BMP: 06/01/17 05:31 06/01/17 05:31 Lab Results: I have reviewed the past 24 hour labs
[2017-06-01] MEDS: ONDANSETRON 4 MG/2 ML VIAL IV PRN (13:31)
[2017-06-01] MEDS: LOVASTATIN 20 MG TABLET PO SCH (17:06)
[2017-06-01] MEDS: MIRTAZAPINE 15 MG TABLET PO SCH (20:45)
[2017-06-02] MEDS: POTASSIUM CHLORIDE IV SCH (05:42)
[2017-06-02] MEDS: DEXTROSE 5% IV SCH (05:42)
[2017-06-02] MEDS: SODIUM BICARB IV SCH (05:42)
[2017-06-02] MEDS: LEVOTHYROXINE 100 MCG TABLET PO SCH (06:23)
[2017-06-02] MEDS: ALBUTEROL/IPRATROPIUM 3 ML NEB RESP TX SCH ×3 (07:38→20:33)
[2017-06-02] MEDS: INSULIN REGULAR 100 UNIT/ML SUBCUT SCH ×4 (08:34→22:06)
[2017-06-02] MEDS: buPROPion SR 150 MG TABLET PO SCH ×2 (09:22→22:06)
[2017-06-02] MEDS: ESTRADIOL 2 MG TABLET PO SCH (09:22)
[2017-06-02] MEDS: PANTOPRAZOLE 40 MG TABLET PO SCH (09:22)
[2017-06-02] MEDS: FLUCONAZOLE 200 MG TABLET PO SCH (09:22)
[2017-06-02] MEDS: rOPINIRole 1 MG TABLET PO SCH ×2 (09:22→22:05)
[2017-06-02] MEDS: DESITIN 4OZ/NYSTATIN 15 GRAM MIXTURE PASTE TOP SCH ×2 (09:24→22:06)
[2017-06-02] MEDS: ACETAMINOPHEN 325 MG TABLET PO PRN (09:29)
--- NOTE | 2017-06-02 10:48 | Hospitalist Progress Note ---
<Morelia Valenzuela - Last Filed: 06/02/17 12:10> Assessment and Plan - Time spent with patient Time spent with patient: Less than 30 minutes (1) COPD (chronic obstructive pulmonary disease) Status: Acute Assessment and plan: 06/02/17 Stable. Current Visit: Yes (2) Gastroenteritis Status: Acute Assessment and plan: 06/02/17 - due to samonella; symptoms improving; continue IV cipro and supportive care. Current Visit: Yes (3) Generalized weakness Status: Acute Assessment and plan: 06/02/17 - patient w/history of fibromyalgia. She continues to work with PT. She has some improvements but she reports some dizziness with PT ambulation. Will continue current treatment and monitor. Current Visit: Yes (4) Gram-negative bacteremia Status: Acute Assessment and plan: 06/02/17 Blood Culture: salmonella species final. Will continue IV Cipro. Continue to monitor. Current Visit: Yes (5) Hypokalemia Status: Acute Assessment and plan: 06/02/17 Potassium stable at 3.7 this a.m. Current Visit: Yes (6) Sarcoidosis Status: Acute Assessment and plan: 06/02/17 Continue current medications. Current Visit: Yes (7) Hypothyroidism Status: Acute Assessment and plan: 06/02/17 Continue supplements Current Visit: No Hospitalist: Subjective Interval history: 06/02/17 -Ms Carey verbalized feeling a little better this morning. Her appetite has improved today. She reports occasionally feeling a little dizzy when she gets up to ambulate, its like the room is "spinning". She denies shortness of breath, chest pain, nausea, vomiting, chills or fever. Exam - Constitutional Vitals: Period Temp Pulse Resp BP Sys/Young Pulse Ox Last 24 Hr 96.7 F-98.1 F 69-81 16-20 106-114/56-77 97-100 General appearance: normal weight, no acute distress - Head Head exam: Present: normal inspection - Eye Eye exam: Present: EOMI Pupils: Present: JAE - Neck Neck exam: Present: normal inspection - Respiratory Respiratory exam: Present: clear to auscultation bilaterally. Absent: rhonchi, stridor, wheezes - Cardiovascular Cardiovascular exam: Present: regular rate and rhythm - GI/Abdominal GI/Abdominal exam: Present: normal bowel sounds, soft. Absent: tenderness, rebound - Extremities Exam Extremities exam: Present: normal inspection. Absent: edema - Neurological Exam Neurological exam: Present: alert, oriented X3 - Psychiatric Psychiatric exam: Present: normal affect, normal mood - Skin Skin exam: Present: normal color, warm, dry Results - Labs CBC & BMP: 06/01/17 05:31 06/01/17 05:31 Lab Results: I have reviewed the past 24 hour labs <Chelsea Woods - Last Filed: 06/02/17 14:09> Assessment and Plan (1) ARF (acute renal failure) Status: Acute Current Visit: Yes (2) Diarrhea Status: Acute Current Visit: Yes (3) COPD (chronic obstructive pulmonary disease) Status: Acute Current Visit: Yes (4) Generalized weakness Status: Acute Current Visit: Yes (5) Metabolic acidosis Status: Resolved Current Visit: No (6) Sarcoidosis Status: Acute Current Visit: Yes (7) Hypothyroidism Status: Acute Current Visit: No (8) History of meningitis Status: Acute Current Visit: Yes (9) Dyslipidemia Status: Acute Current Visit: Yes (10) Gastroenteritis Status: Acute Current Visit: Yes (11) Gram-negative bacteremia Status: Acute Current Visit: Yes (12) Hypokalemia Status: Acute Current Visit: Yes Hospitalist: Subjective Interval history: Patient is doing great this am, tolerating po although she had some mild headache earlier on. Exam - Constitutional Vitals: Period Temp Pulse Resp BP Sys/Young Pulse Ox Last 24 Hr 96.7 F-98.1 F 72-81 16-20 106-114/55-77 96-100 Results - Labs CBC & BMP: 06/01/17 05:31 06/01/17 05:31
[2017-06-02] MEDS: CIPROFLOXACIN INJ 400 MG in PREMIX 1 EACH IV SCH (14:47)
--- NOTE | 2017-06-02 15:31 | Nephrology Progress Note ---
Nephrology - PN: Subj Interval history: Patient denies shortness of breath. Review of systems GI-patient had some diarrhea this morning but this problem has greatly checked up. Physical exam general the patient is in no acute distress Assessment/plan 1. Acute renal failure-patient's kidneys have been getting better, will follow up her next BMP 2. Diarrhea 3. Anemia-patient's hematocrit was around 31% a few days ago. 4. Chronic kidney disease Exam (PN)-Nephrology - Vital Signs Vital signs: Period Temp Pulse Resp BP Sys/Young Pulse Ox Last 24 Hr 96.7 F-98.1 F 72-81 16-20 106-114/55-77 96-100 - Lab 06/01/17 05:31 06/01/17 05:31 Most recent lab results ABG pH 7.344 (7.35-7.45) L 05/28/17 00:17 ABG pCO2 27.1 MM HG (35-48) L 05/28/17 00:17 ABG pO2 131.5 MM HG (80-95) H 05/28/17 00:17 ABG HCO3 14.4 MMOL/L (20-26) L 05/28/17 00:17 ABG O2 Saturation 98.0 % (95-100) 05/28/17 00:17 Calcium 8.5 MG/DL (8.5-10.1) 06/01/17 05:31 Magnesium 2.6 MG/DL (1.8-2.4) H 05/31/17 05:24 Assessment and Plan (1) ARF (acute renal failure) Status: Acute Assessment and plan: This patient seems to have developed acute renal failure on chronic kidney disease related to volume depletion. She is responding to IV fluids. Current Visit: Yes (2) History of hypertension Status: Acute Current Visit: Yes (3) Chronic kidney disease Status: Acute Assessment and plan: In speaking with the patient and sounds like she has a GFR of around 50 mL's per minute at baseline Current Visit: Yes (4) Dehydration Status: Acute Current Visit: Yes (5) Diarrhea Status: Acute Assessment and plan: Continue Cipro, follow-up blood and stool cultures for sensitivities Current Visit: Yes (6) History of meningitis Status: Acute Current Visit: Yes (7) CVA (cerebral vascular accident) Status: Acute Current Visit: No (8) History of psoriasis Status: Acute Current Visit: No (9) Anemia Status: Acute Assessment and plan: Patient's hematocrits around 31% Current Visit: Yes (10) Hypokalemia Status: Acute Assessment and plan: I will adjust her IV fluids. Current Visit: Yes
[2017-06-02] MEDS: LOVASTATIN 20 MG TABLET PO SCH (17:55)
[2017-06-02] MEDS: MIRTAZAPINE 15 MG TABLET PO SCH (22:06)
[2017-06-03] MEDS: CIPROFLOXACIN INJ 400 MG in PREMIX 1 EACH IV SCH (01:51)
[2017-06-03] MEDS: DEXTROSE 5% IV SCH ×2 (03:29→06:36)
[2017-06-03] MEDS: POTASSIUM CHLORIDE IV SCH ×2 (03:29→06:36)
[2017-06-03] MEDS: SODIUM BICARB IV SCH ×2 (03:29→06:36)
[2017-06-03] MEDS: LEVOTHYROXINE 100 MCG TABLET PO SCH (06:35)
[2017-06-03 07:06] LABS: Calcium 8.8 MG/DL (8.5-10.1); Magnesium 1.7 MG/DL (1.8-2.4); Osmolality,Calculated 281.4 MOS/KG (273-304); Potassium 4.5 MMOL/L (3.5-5.1)
[2017-06-03] MEDS: ALBUTEROL/IPRATROPIUM 3 ML NEB RESP TX SCH ×3 (07:50→20:02)
[2017-06-03] MEDS: INSULIN REGULAR 100 UNIT/ML SUBCUT SCH ×4 (08:12→21:25)
[2017-06-03 08:35] LABS: Basophils % 0.3 % (0.0-0.8); Eosinophils # 0.2 10*3/uL (0.0-0.87); Eosinophils % 3.1 % (0.00-10.9); Hematocrit 30.8 VOL% (35.7-47.0); Immature Granulocytes % 1.3 %; Lymphocytes # 1.8 10*3/uL (1.4-4.0); Lymphocytes % 23.3 % (21.3-54.2); Mean Corpuscular HGB Conc 32.5 GM/DL (32-36); Mean Corpuscular Hemoglobin 24 PG (27-34); Mean Platelet Volume 9.4 FL (9.6-12.0); Monocytes # 0.5 10*3/uL (0.11-0.8); Monocytes % 6.6 % (1.7-12.7); Neutrophils % 65.4 % (38.7-73.9); Platelet Count 241 T/CUMM (130-400); Red Blood Count 4.22 MC/CUMM (3.8-5.5); White Blood Count 7.6 T/CUMM (4-12)
[2017-06-03] MEDS: DESITIN 4OZ/NYSTATIN 15 GRAM MIXTURE PASTE TOP SCH ×2 (09:07→21:32)
[2017-06-03] MEDS: PANTOPRAZOLE 40 MG TABLET PO SCH (09:07)
[2017-06-03] MEDS: buPROPion SR 150 MG TABLET PO SCH ×2 (09:07→21:31)
[2017-06-03] MEDS: ESTRADIOL 2 MG TABLET PO SCH (09:07)
[2017-06-03] MEDS: rOPINIRole 1 MG TABLET PO SCH ×2 (09:07→21:31)
[2017-06-03] MEDS: FLUCONAZOLE 200 MG TABLET PO SCH (09:07)
--- NOTE | 2017-06-03 12:23 | Infectious Disease Consult ---
Assessment and Plan (1) Salmonella bacteremia Status: Acute Assessment and plan: This infection is due to severe gastroenteritis. The gastroenteritis has resolved. Patient clinically improved. Recommendations: 1. Repeat blood cultures to document resolution of the bloodstream infection 2. Agree with ciprofloxacin; we can now switch to oral 750 mg twice a day. Treatment duration will be 14 days from today, that is 14 days from date of negative blood cultures assuming today's cultures were negative. 3. Appointment to see me in the office in 1 month. We will plan to repeat blood cultures then to ensure no relapse of the bacteremia, given patient's immunocompromised state. Thank you very much for the consult. Current Visit: Yes (2) ARF (acute renal failure) Status: Acute Current Visit: Yes (3) Gastroenteritis Status: Acute Current Visit: Yes (4) History of meningitis Status: Acute Current Visit: Yes (5) GINA (acute kidney injury) Status: Acute Current Visit: No History of Present Illness Chief complaint: Salmonella bloodstream infection History of present illness: Ms. Carey is a 67 year old female was well until almost 10 days ago when she developed severe diarrhea. This persisted for 4 days and she got extremely weak and so was brought to hospital by her family. She was noted to be severely dehydrated with acute renal failure [creatinine more than 6]. Ultimately she was found to have salmonella infection in the blood and stool also culture for Salmonella. She is on ciprofloxacin. I am asked to advise further. Patient feels much better overall with decrease in the diarrhea. Stool is more formed, and today she is only had one soft stool so far. Of note her also had a similar illness in his stool tested positive for Salmonella. 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 Home Medications Medication Instructions Recorded Confirmed Type Fluconazole 200 mg PO DAILY 06/27/15 05/28/17 History Levothyroxine Tab [Synthroid Tab] 100 mcg PO DAILY 06/27/15 05/28/17 History Lovastatin 20 mg PO DAILY W/SUPPER 06/27/15 05/28/17 History Mirtazapine 15 mg PO BEDTIME 06/27/15 05/28/17 History Ropinirole HCl 2 mg PO QAM 06/27/15 05/28/17 History Ropinirole HCl [Requip] 4 mg PO BEDTIME 06/27/15 05/28/17 History buPROPion SR [Wellbutrin Sr] 150 mg PO BID 06/27/15 05/28/17 History Albuterol Sulfate [Ventolin HFA] 2 puff INH Q4H PRN 11/15/16 05/28/17 History Esomeprazole Magnesium 1 each PO DAILY 03/15/17 05/28/17 History [Esomeprazole] Estradiol Tab [Estrace Tab] 2 mg PO DAILY #0 03/19/17 05/28/17 Rx Albuterol/Ipratropium Neb [Duoneb] 3 ml RESP TX TID PRN 05/28/17 05/28/17 History Allergies Allergy/AdvReac Type Severity Reaction Status Date / Time aripiprazole [From Abilify] AdvReac Severe sucicidal Verified 05/27/17 22:00 ideation pregabalin [From Lyrica] AdvReac Swelling Verified 05/27/17 22:00 of Lip/Tongue/Throat 12 point system: reviewed and no additional remarkable complaints except as stated (Per HPI) Medical,Surgical,& Family Hx - Medical History Cardio: History of: Hypertension Psychological: History of: Anxiety Disorders, ADHD (Attention), Depression Neurology: History of: Cerebrovascular Accident (2007) Comment Only: Dementia (memory loss from stroke) HEENT: History of: Eye Problem (Reaing glasses), Dental Problems (Full Set Dentures) Comment Only: HEENT Problems (Jaw extension surgery 1996) Endocrine: History of: Thyroid Disorder Rheumatology: History of;: Fibromyalgia, Psoriasis Respiratory: History of: COPD, Pneumonia (2007-ventilator), Respiratory Problems (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 Kay;sarcoidosis) Renal: History of: Renal Problems (chronic renal insufficiency-65% due to antibiotics-Dr. Mendosa) Genitourinary: History of: Bladder Problem (bladder-sudden onset atrophy) Gastrointestinal: History of: GERD, GI Problems (bowel incontinence) No history of: Polyps Musculoskeletal: History of: Musculoskeletal Problems (Arthritis-OA; osteopenia) Other: No history of: Anesthesia Reactions, Cancer - Surgical History Cardiac Surgeries: Patient Denies: Cardiac Surgery Thoracic Surgeries: Patient denies;: Organ Transplant, Lobectomy Neurologic Surgeries: Patient denies: Neurologic Surgery Abdominal Surgeries: Surgical HX of: Abdominal Surgery ("Small intestine resection in 2016"), Colonoscopy Reproductive Surgeries: Surgical HX of;: Breast Surgery (Rt Breast benign; watching lumb lt breast), Genitourinary Surgery ("Bladder tack" surgery in 1996) , Hysterectomy (Partial 1985) Orthopedic Surgeries: Surgical HX of;: Total Knee Replacement (Left knee 2014) - Family History Family History: Reports;: Family Cancer (Brother-Lung/bone/colon), Family Diabetes (Mother/brother), Family Heart Disease (Father), Family Hypertension ( Mother/Brother), Family Stroke (Grandfather/mother) - Social History Smoking Status: Never smoker Frequency of Alcohol Use: None Type of Drug Use: None Infectious Disease Exam H&P - Constitutional Vitals: Vital Signs Temp Pulse Resp BP Pulse Ox 97.5 F L 92 H 18 113/68 99 06/03/17 07:44 06/03/17 07:55 06/03/17 07:55 06/03/17 07:44 06/03/17 07:55 Intake and Output 06/02/17 06/03/17 06/03/17 23:59 07:59 15:59 Intake Total 600 / 600 1880 / 1880 Balance 600 / 600 1880 / 1880 Intake: IV 1400 / 1400 Cipro Inj 400 mg In 400 / 400 Premix 1 Each @ 200 mls/ hr IV Q12H [facility]IAM Rx#: [id number] KCl Inj 30 Meq Sodium 1000 / 1000 Bicarb Inj 50 Meq/50 ml In D5 1,000 ml @ 50 mls/ hr IV .[id number] MARIAM Rx#: [id number] Oral 600 / 600 480 / 480 Other: Voiding Method Toilet Toilet # Voids 3 4 # Bowel Movements 1 Exam: General: Patient relatively comfortable, just ambulated from bathroom to bed HEENT: Mucous membranes pink and moist, anicteric acyanotic, JAE, no oropharyngeal exudates Neck: Supple, no thyroid gland enlargement Respiratory system: Breath sounds vesicular, no crepitations or wheezes Cardiovascular: Normal S1 and S2, no murmurs appreciated Abdomen: Normal bowel sounds, soft nontender throughout, no organomegaly or mass Genitourinary: No suprapubic pain or bladder distention Extremities: no edema Skin: No rash Reports - Labs CBC & BMP: 06/03/17 08:12 06/03/17 06:05 Labs: Laboratory Results - last 24 hr 06/02/17 06/02/17 06/03/17 16:38 19:38 06:05 WBC RBC Hgb Hct MCV MCH MCHC RDW Plt Count MPV Neut % (Auto) Lymph % (Auto) [place] % (Auto) Eos % (Auto) Baso % (Auto) Neut # (Auto) Lymph # (Auto) [place] # (Auto) Eos # (Auto) Baso # (Auto) Immature Gran % Nucleated RBC % Immature Gran # Nucleated RBCs # Immature Plt Fraction Sodium 140 Potassium 4.5 Chloride 110 H Carbon Dioxide 23 Anion Gap 11.5 BUN 22 H Creatinine 1.00 GFR Calculation 61 BUN/Creatinine Ratio 22.00 H Glucose 97 POC Glucose 120 H 107 H Calculated Osmolality 281.4 Calcium 8.8 Magnesium 1.7 L 06/03/17 06/03/17 06/03/17 07:17 08:12 11:24 WBC 7.6 RBC 4.22 Hgb 10.0 L Hct 30.8 L MCV 73.0 L MCH 24 L MCHC 32.5 RDW 19.0 H Plt Count 241 MPV 9.4 L Neut % (Auto) 65.4 Lymph % (Auto) 23.3 [place] % (Auto) 6.6 Eos % (Auto) 3.1 Baso % (Auto) 0.3 Neut # (Auto) 5.0 Lymph # (Auto) 1.8 [place] # (Auto) 0.5 Eos # (Auto) 0.2 Baso # (Auto) 0.0 Immature Gran % 1.3 Nucleated RBC % 0.0 Immature Gran # 0.10 Nucleated RBCs # 0.00 Immature Plt Fraction 0.0 Sodium Potassium Chloride Carbon Dioxide Anion Gap BUN Creatinine GFR Calculation BUN/Creatinine Ratio Glucose POC Glucose 108 H 105 Calculated Osmolality Calcium Magnesium
--- NOTE | 2017-06-03 13:32 | Hospitalist Progress Note ---
<Morelia Valenzuela - Last Filed: 06/03/17 13:30> Assessment and Plan - Time spent with patient Time spent with patient: Less than 30 minutes (1) COPD (chronic obstructive pulmonary disease) Status: Acute Assessment and plan: 06/03/17 Stable 06/02/17 Stable. Current Visit: Yes (2) Gastroenteritis Status: Acute Assessment and plan: 06/03/17 symptoms improving; continue IV Cipro and supportive care. 06/02/17 - due to samonella; symptoms improving; continue IV cipro and supportive care. Current Visit: Yes (3) Generalized weakness Status: Acute Assessment and plan: 06/03/17 - She is ambulating without difficult. she denies any dizziness this a.m. Will continue current treatment and monitoring. 06/02/17 - patient w/history of fibromyalgia. She continues to work with PT. She has some improvements but she reports some dizziness with PT ambulation. Will continue current treatment and monitor. Current Visit: Yes (4) Gram-negative bacteremia Status: Acute Assessment and plan: 06/03/17 - WBC 7.6; Temperature 97.2. Conitnue to monitor and Continue IV Cipro. 06/02/17 Blood Culture: salmonella species final. Will continue IV Cipro. Continue to monitor. Current Visit: Yes (5) Hypokalemia Status: Acute Assessment and plan: 06/03/17 K 4.5 this a.m. will continue to monitor. May be able to go home tomorrow if continue to do well. 06/02/17 Potassium stable at 3.7 this a.m. Current Visit: Yes (6) Sarcoidosis Status: Acute Assessment and plan: 06/02/17 Continue current medications. Current Visit: Yes (7) Hypothyroidism Status: Acute Assessment and plan: 06/02/17 Continue supplements Current Visit: No Hospitalist: Subjective Interval history: Ms Carey seen and chart reviewed. She is sitting up in bed on cell phone. She is in no acute distress and her color appears better this morning. She verbalized feeling a little better this morning. She denies any dizziness with ambulation today. Exam - Constitutional Vitals: Period Temp Pulse Resp BP Sys/Young Pulse Ox Last 24 Hr 97.2 F-98.5 F 73-92 16-22 108-116/55-69 96-99 General appearance: normal weight - Head Head exam: Present: normal inspection - Eye Eye exam: Present: EOMI Pupils: Present: JAE - Neck Neck exam: Present: normal inspection. Absent: thyromegaly - Respiratory Respiratory exam: Present: clear to auscultation bilaterally. Absent: rhonchi, stridor, wheezes - Cardiovascular Cardiovascular exam: Present: regular rate and rhythm - GI/Abdominal GI/Abdominal exam: Present: normal bowel sounds, soft. Absent: tenderness, rebound - Extremities Exam Extremities exam: Present: full ROM. Absent: edema - Neurological Exam Neurological exam: Present: alert, oriented X3 - Psychiatric Psychiatric exam: Present: normal affect, normal mood. Absent: agitated, anxious - Skin Skin exam: Present: normal color, warm, dry Results - Labs CBC & BMP: 06/03/17 08:12 06/03/17 06:05 Lab Results: I have reviewed the past 24 hour labs Specialty Discharge - Follow Up or Referrals Follow up with: Brandy Cevallos MD [Physician] - 1 Month <Chelsea Woods - Last Filed: 06/03/17 14:19> Assessment and Plan (1) ARF (acute renal failure) Status: Acute Current Visit: Yes (2) Diarrhea Status: Acute Current Visit: Yes (3) COPD (chronic obstructive pulmonary disease) Status: Acute Current Visit: Yes (4) Generalized weakness Status: Acute Current Visit: Yes (5) Metabolic acidosis Status: Resolved Current Visit: No (6) Sarcoidosis Status: Acute Current Visit: Yes (7) Hypothyroidism Status: Acute Current Visit: No (8) History of meningitis Status: Acute Current Visit: Yes (9) Dyslipidemia Status: Acute Current Visit: Yes (10) Gastroenteritis Status: Acute Current Visit: Yes (11) Gram-negative bacteremia Status: Acute Current Visit: Yes (12) Hypokalemia Status: Acute Current Visit: Yes Hospitalist: Subjective Interval history: No new issues. Hopefully dc in am Exam - Constitutional Vitals: Period Temp Pulse Resp BP Sys/Young Pulse Ox Last 24 Hr 97.2 F-98.5 F 73-92 16-22 108-116/55-69 96-99 Results - Labs CBC & BMP: 06/03/17 08:12 06/03/17 06:05
--- NOTE | 2017-06-03 13:52 | Nephrology Progress Note ---
Nephrology - PN: Subj Interval history: Patient is without complaints. Physical exam general the patient is in no acute distress, she has no edema Assessment/plan 1. Acute renal failure-this patient's creatinine is normalized to 1 mg/dL 2. Diarrhea-patient still has an occasional loose stool but very rarely 3. Anemia-patient's hematocrit is 31% this is stable We will sign off the case please reconsult as needed thank you Exam (PN)-Nephrology - Vital Signs Vital signs: Period Temp Pulse Resp BP Sys/Young Pulse Ox Last 24 Hr 97.2 F-98.5 F 73-92 16-22 108-116/55-69 96-99 - Lab 06/03/17 08:12 06/03/17 06:05 Most recent lab results ABG pH 7.344 (7.35-7.45) L 05/28/17 00:17 ABG pCO2 27.1 MM HG (35-48) L 05/28/17 00:17 ABG pO2 131.5 MM HG (80-95) H 05/28/17 00:17 ABG HCO3 14.4 MMOL/L (20-26) L 05/28/17 00:17 ABG O2 Saturation 98.0 % (95-100) 05/28/17 00:17 Calcium 8.8 MG/DL (8.5-10.1) 06/03/17 06:05 Magnesium 1.7 MG/DL (1.8-2.4) L 06/03/17 06:05 Assessment and Plan (1) ARF (acute renal failure) Status: Acute Assessment and plan: This patient seems to have developed acute renal failure on chronic kidney disease related to volume depletion. She is responding to IV fluids. Current Visit: Yes (2) History of hypertension Status: Acute Current Visit: Yes (3) Chronic kidney disease Status: Acute Assessment and plan: In speaking with the patient and sounds like she has a GFR of around 50 mL's per minute at baseline Current Visit: Yes (4) Dehydration Status: Acute Current Visit: Yes (5) Diarrhea Status: Acute Assessment and plan: Continue Cipro, follow-up blood and stool cultures for sensitivities Current Visit: Yes (6) History of meningitis Status: Acute Current Visit: Yes (7) CVA (cerebral vascular accident) Status: Acute Current Visit: No (8) History of psoriasis Status: Acute Current Visit: No (9) Anemia Status: Acute Assessment and plan: Patient's hematocrits around 31% Current Visit: Yes (10) Hypokalemia Status: Acute Assessment and plan: I will adjust her IV fluids. Current Visit: Yes Specialty Discharge - Follow Up or Referrals Follow up with: Brandy Cevallos MD [Physician] - 1 Month
[2017-06-03] MEDS: LOVASTATIN 20 MG TABLET PO SCH (17:23)
[2017-06-03] MEDS: CIPROFLOXACIN 750 MG TABLET PO SCH (21:30)
[2017-06-03] MEDS: MIRTAZAPINE 15 MG TABLET PO SCH (21:31)
[2017-06-04] MEDS: POTASSIUM CHLORIDE IV SCH (03:33)
[2017-06-04] MEDS: SODIUM BICARB IV SCH (03:33)
[2017-06-04] MEDS: DEXTROSE 5% IV SCH (03:33)
[2017-06-04] MEDS: LEVOTHYROXINE 100 MCG TABLET PO SCH (06:07)
[2017-06-04 07:15] LABS: Basophils % 0.2 % (0.0-0.8); Eosinophils # 0.2 10*3/uL (0.0-0.87); Eosinophils % 3.8 % (0.00-10.9); Hemoglobin 8.9 GM/DL (12.0-16.0); Immature Granulocytes % 1.3 %; Immature Granulocytes Absolute 0.07 #; Lymphocytes # 1.4 10*3/uL (1.4-4.0); Lymphocytes % 26.1 % (21.3-54.2); Mean Corpuscular Hemoglobin 24 PG (27-34); Mean Corpuscular Volume 73.6 FL (87-102); Mean Platelet Volume 9.6 FL (9.6-12.0); Monocytes # 0.4 10*3/uL (0.11-0.8); Monocytes % 7.2 % (1.7-12.7); Neutrophils # 3.3 10*3/uL (1.4-7.4); Neutrophils % 61.4 % (38.7-73.9); Platelet Count 230 T/CUMM (130-400); Red Blood Count 3.67 MC/CUMM (3.8-5.5); Red Cell Distribution Width 19.1 % (9.3-17.3); White Blood Count 5.3 T/CUMM (4-12)
[2017-06-04] MEDS: ALBUTEROL/IPRATROPIUM 3 ML NEB RESP TX SCH (07:19)
[2017-06-04 07:53] LABS: Calcium 8.7 MG/DL (8.5-10.1); Magnesium 1.5 MG/DL (1.8-2.4); Osmolality,Calculated 282.4 MOS/KG (273-304); Potassium 4.6 MMOL/L (3.5-5.1)
[2017-06-04] MEDS: INSULIN REGULAR 100 UNIT/ML SUBCUT SCH ×2 (08:06→12:36)
[2017-06-04] MEDS: CIPROFLOXACIN 750 MG TABLET PO SCH (08:52)
[2017-06-04] MEDS: rOPINIRole 1 MG TABLET PO SCH (08:52)
[2017-06-04] MEDS: ESTRADIOL 2 MG TABLET PO SCH (08:52)
[2017-06-04] MEDS: buPROPion SR 150 MG TABLET PO SCH (08:52)
[2017-06-04] MEDS: FLUCONAZOLE 200 MG TABLET PO SCH (08:52)
[2017-06-04] MEDS: PANTOPRAZOLE 40 MG TABLET PO SCH (08:52)
[2017-06-04] MEDS: DESITIN 4OZ/NYSTATIN 15 GRAM MIXTURE PASTE TOP SCH (08:55)
--- NOTE | 2017-06-04 09:23 | Discharge Summary ---
<Domonique Merlos - Last Filed: 06/04/17 09:10> Hospital Course - Hospital Course Hospital Course: This is a chronically ill 67-year-old female that presented to the ED at [facility] on the night of May 27, 2017 for the evaluation of nausea, vomiting, and diarrhea. The patient has a medical history significant for hypertension, attention deficit and hyperactivity disorder, depression, cerebrovascular accident, dementia, fibromyalgia, psoriasis, chronic obstructive pulmonary disease, pneumonia, histoplasmosis, sarcoidosis, chronic renal insufficiency, bladder atrophy, gastroesophageal reflux disease, bowel incontinence, osteoarthritis, and osteopenia. Patient has surgical history significant for colonoscopy, lumpectomy, hysterectomy, bilateral knee replacement. The patient reported the onset of symptoms 5 days prior to presentation. The patient reported that she has been unable to keep anything down, has experienced a decrease in appetite, and has experienced diarrhea and vomiting each time that she attempts to eat. In addition, the patient has gradually become profoundly weak since the onset of the symptoms prompting her family to transfer her to the ED for further evaluation. The patient was seen and evaluated at the time of ED presentation. The patient was noted to be mildly tachycardic with a heart rate noted at 109 and grossly hypotensive with a blood pressure noted at 88/47. Labs were obtained which were remarkable for pH 7.344, PCO2 27.1, HCO3 14.4, sodium 130, potassium 3.1, carbon dioxide 15, BUN 46, creatinine 6.40, glucose 170, magnesium 2.7, globulin 4.4, amylase 13, lipase 53.0. Urinalysis was significant for small amount of blood, urine urobilinogen greater than 2.0, urine RBCs 2, urine WBCs 1 , and occasional amorphous crystals and urine mucus was noted. Abdominal x-ray was significant for scattered air-fluid levels consistent with gastroenteritis or ileus however, no obstruction or pneumoperitoneum was noted. Chest x-ray was significant for hyperinflation, chronic interstitial prominence of the lungs and scattered calcified granulomata and hilar appearance bilaterally. The patient was subsequently admitted to the hospitalist service for continuation of care. Rehydration and electrolyte replacements were initiated. Due to the severity of the patient's renal function, a nephrology consultation was requested. The patient was seen and recommendations were given. Rehydration was continued. Blood cultures obtained during the ED encounter were positive for gram-negative rods. BC and SC- grew Samonella. The patient was treated with IV ciprofloxacin and ID was consulted, they recommended to repeat BC which came back negative and to treat with po Cipro for the next 14days. Nephrology also saw patient in consultation.Rehydration continued and the patient's renal status improved. Today, the patient's BUN and creatinine are noted at 24/1.20. The patient's condition is stable. She has not experienced any significant overnight events. 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 Avtar Mendosa as directed. Specialty Discharge - Follow Up or Referrals Follow up with: Brandy Cevallos MD [Physician] - 07/09/17 9:45 am Discharge Plan - Discharge Data Disposition: Disch To Home/Self Care - Discharge Medications New Acetaminophen Tab [Tylenol Tab] 650 mg PO Q4H PRN tablet PRN Reason: Fever, Headache, Mild Pain Ciprofloxacin Tab [Cipro Tab] 750 mg PO Q12HR #30 tablet HYDROcodone/ACETAMIN 5-325 [[place] 5-325] 1 tablet PO Q4H PRN #20 tablet PRN Reason: Pain Moderate (4-7) Continue Fluconazole 200 mg PO DAILY buPROPion SR [Wellbutrin Sr] 150 mg PO BID Levothyroxine Tab [Synthroid Tab] 100 mcg PO DAILY Ropinirole HCl 2 mg PO QAM Ropinirole HCl [Requip] 4 mg PO BEDTIME Mirtazapine 15 mg PO BEDTIME Lovastatin 20 mg PO DAILY W/SUPPER Albuterol Sulfate [Ventolin HFA] 2 puff INH Q4H PRN PRN Reason: Shortness Of Breath/Wheezing Estradiol Tab [Estrace Tab] 2 mg PO DAILY #0 Albuterol/Ipratropium Neb [Duoneb] 3 ml RESP TX TID PRN PRN Reason: Shortness Of Breath/Wheezing Esomeprazole Magnesium [Esomeprazole] 1 each PO DAILY - Follow Up or Referral Follow Up: Brandy Cevallos MD [Physician] - 07/09/17 9:45 am - Forms/Instructions Instructions: Salmonella Infection (GEN), Food Poisoning (GEN) Exam - Constitutional Vitals: Period Temp Pulse Resp BP Sys/Young Pulse Ox Last 24 Hr 97.0 F-98.5 F 74-85 16-20 96-131/54-69 95-100 Discharge Results Procedures and tests throughout hospitalization: Pending Orders 05/27/17 22:59 Blood Culture Stat 05/28/17 00:46 Stool Culture/[place] Stat 06/03/17 09:51 Blood Culture Stat Labs on day of discharge: Labs from last 24 hours 06/04/17 06/04/17 06/04/17 07:37 06:36 06:36 WBC 5.3 D RBC 3.67 L Hgb 8.9 L Hct 27.0 L MCV 73.6 L MCH 24 L MCHC 33.0 RDW 19.1 H Plt Count 230 MPV 9.6 Neut % (Auto) 61.4 Lymph % (Auto) 26.1 [place] % (Auto) 7.2 Eos % (Auto) 3.8 Baso % (Auto) 0.2 Neut # (Auto) 3.3 Lymph # (Auto) 1.4 [place] # (Auto) 0.4 Eos # (Auto) 0.2 Baso # (Auto) 0.0 Immature Gran % 1.3 Nucleated RBC % 0.0 Immature Gran # 0.07 Nucleated RBCs # 0.00 Immature Plt Fraction 0.0 Sodium 140 Potassium 4.6 Chloride 108 H Carbon Dioxide 23 Anion Gap 13.6 BUN 24 H Creatinine 1.20 H GFR Calculation 49 BUN/Creatinine Ratio 20.00 Glucose 99 POC Glucose 108 H Calculated Osmolality 282.4 Calcium 8.7 Magnesium 1.5 L 06/03/17 06/03/17 20:00 17:22 WBC RBC Hgb Hct MCV MCH MCHC RDW Plt Count MPV Neut % (Auto) Lymph % (Auto) [place] % (Auto) Eos % (Auto) Baso % (Auto) Neut # (Auto) Lymph # (Auto) [place] # (Auto) Eos # (Auto) Baso # (Auto) Immature Gran % Nucleated RBC % Immature Gran # Nucleated RBCs # Immature Plt Fraction Sodium Potassium Chloride Carbon Dioxide Anion Gap BUN Creatinine GFR Calculation BUN/Creatinine Ratio Glucose POC Glucose 111 H 117 H Calculated Osmolality Calcium Magnesium Preliminary micro results at discharge 06/03/17 09:51 Blood Culture - Preliminary Blood No growth at 1 day 06/03/17 09:51 Blood Culture - Preliminary Blood No growth at 1 day 05/28/17 00:46 Stool Culture - Preliminary Stool Salmonella species 05/27/17 22:59 Blood Culture - Preliminary Blood Salmonella species DS: Provider Date of admission: 05/28/17 01:21 Primary care physician: . No PCP Attending physician on admission: Avtar Long MD Consults: 05/28/17 03:36 Consult to Dietitian [CONS] Routine Reason for Dietitian: Other 05/29/17 13:18 Consult to Physician [CONS] Routine Comment: Renal Failure Consulting Provider: Avtar Mendosa Consult to Specialist Group: Nephrology When should Consulting Provider be notified: Now Person Notified: julio Date Notified: 05/29/17 Time Notified: 14:09 05/29/17 15:45 Consult to Physical Therapy [CONS] Routine Reason for Physical Therapy: Evaluate and Treat 05/31/17 16:37 Consult to Physician [CONS] Routine Comment: Salmonella infection Consulting Provider: Brandy Cevallos When should Consulting Provider be notified: In am Person Notified: Kelly Date Notified: 06/02/17 Time Notified: 12:24 Consult Notification Comment: LEFT MESSAGE DR. LANDAVERDE OUT UNTIL THURSDAY Discharging clinician: Domonique Merlos CNP <Chelsea Woods - Last Filed: 06/04/17 12:14> Hospital Course - Time spent with patient Time with patient DS: Greater than 30 minutes (Time spent: 35mins) Diagnosis - Discharge Diagnosis (1) ARF (acute renal failure) Status: Acute (2) Diarrhea Status: Acute (3) COPD (chronic obstructive pulmonary disease) Status: Acute (4) Generalized weakness Status: Acute (5) Metabolic acidosis Status: Resolved (6) Sarcoidosis Status: Acute (7) Hypothyroidism Status: Acute (8) History of meningitis Status: Acute (9) Dyslipidemia Status: Acute (10) Gastroenteritis Status: Acute (11) Gram-negative bacteremia Status: Acute (12) Hypokalemia Status: Acute Discharge Plan - Discharge Data Condition at Discharge: Stable Discharge Diet: advance to your usual diet Activity: resume usual activities as tolerated - Forms/Instructions Additional Discharge Instructions: Follow PCP in 1week and Nephrology as scheduled. Exam - Constitutional General appearance: no acute distress - Head Head exam: Present: normal inspection - Respiratory Respiratory exam: Present: clear to auscultation bilaterally - Cardiovascular Cardiovascular exam: Present: regular rate and rhythm - GI/Abdominal GI/Abdominal exam: Present: normal bowel sounds - Extremities Exam Extremities exam: Present: normal inspection - Neurological Exam Neurological exam: Present: alert, oriented X3
[2017-06-04 13:37] VITALS: BP 110/70
== END 2017-06-04 13:56 | disposition home or self-care (01) | DRG 372 ==
LOC: N.ED 21:18 → SUATTDRO 05-28 01:20 → N.EDINP 05-28 01:20 → N.5E 05-28 01:56
PROVIDERS: ADMIT Internal Medicine; ATTEND Internal Medicine

== ENCOUNTER 2018-03-30 16:17 | Inpatient (IN) ==
[2018-03-30] MEDS ORDERED: ALBUTEROL/IPRATROPIUM 3 ML NEB RESP TX STA (17:08)
[2018-03-30] MEDS ORDERED: SODIUM CHLORIDE 0.9% 1,000 ML IV STA (17:08)
[2018-03-30] MEDS ORDERED: methylPREDNISolone SOD SUC 125 MG/2 ML VIAL IV STA (17:09)
[2018-03-30] MEDS ORDERED: methylPREDNISolone SOD SUC 125 MG/2 ML VIAL ONE (17:22)
[2018-03-30 17:36] LABS: Basophils % 0.2 % (0.0-0.8); Eosinophils # 0.1 10*3/uL (0.0-0.87); Eosinophils % 0.5 % (0.00-10.9); Hematocrit 38.7 VOL% (35.7-47.0); Immature Granulocytes % 0.3 %; Immature Granulocytes Absolute 0.04 #; Lymphocytes # 1.1 10*3/uL (1.4-4.0); Lymphocytes % 9.9 % (21.3-54.2); Mean Corpuscular HGB Conc 33.6 GM/DL (32-36); Mean Corpuscular Hemoglobin 29 PG (27-34); Mean Corpuscular Volume 85.8 FL (87-102); Mean Platelet Volume 9.3 FL (9.6-12.0); Monocytes # 0.8 10*3/uL (0.11-0.8); Monocytes % 6.9 % (1.7-12.7); Neutrophils # 9.4 10*3/uL (1.4-7.4); Neutrophils % 82.2 % (38.7-73.9); Platelet Count 239 T/CUMM (130-400); Red Blood Count 4.51 MC/CUMM (3.8-5.5); Red Cell Distribution Width 13.6 % (9.3-17.3); White Blood Count 11.4 T/CUMM (4-12)
[2018-03-30 17:58] LABS: Alanine Aminotransferase 15 U/L (13-56); Albumin 3.1 G/DL (3.4-5.0); Alkaline Phosphatase 61 U/L (45-117); Aspartate Amino Transferase 13 U/L (0-37); Bilirubin,Total < 0.39 MG/DL (0.2-1.0); Blood Urea Nitrogen 17 MG/DL (7-18); Calcium 9.4 MG/DL (8.5-10.1); Glucose 103 MG/DL (74-106); Osmolality,Calculated 271.1 MOS/KG (273-304); Potassium 3.9 MMOL/L (3.5-5.1); Sodium 135 MMOL/L (136-145); Total Protein 7.2 G/DL (6.4-8.3)
[2018-03-30] MEDS ORDERED: cefTRIAXone 1,000 MG in SODIUM CHLORIDE 0.9% 100 ML IV STA (19:40)
[2018-03-30] MEDS ORDERED: AZITHROMYCIN 250 MG TABLET PO STA (19:40)
[2018-03-30] MEDS ORDERED: ALBUTEROL 2.5 MG/3 ML NEB RESP TX PRN (20:39)
[2018-03-30] MEDS ORDERED: ONDANSETRON 4 MG/2 ML VIAL IV PRN (20:58)
[2018-03-30] MEDS ORDERED: ACETAMINOPHEN 325 MG TABLET PO PRN (20:58)
[2018-03-30] MEDS: rOPINIRole 1 MG TABLET PO SCH (23:22)
[2018-03-30] MEDS: CHOLECALCIFEROL 1,000 UNIT TABLET PO SCH (23:22)
[2018-03-30] MEDS: ASCORBIC ACID 500 MG TABLET PO SCH (23:22)
[2018-03-30] MEDS: LOVASTATIN 20 MG TABLET PO SCH (23:22)
[2018-03-30] MEDS: guaiFENesin/DM ER 600-30 MG TABLET PO SCH (23:22)
[2018-03-30] MEDS: buPROPion SR 150 MG TABLET PO SCH (23:22)
[2018-03-30] MEDS: LEVOFLOXACIN INJ 750 MG in PREMIX 1 EACH IV SCH (23:25)
[2018-03-30] MEDS: CALCIUM (CARBONATE)/VITAMIN D 600 MG-400 UNIT TABLET PO SCH (23:30)
[2018-03-31] MEDS: ALBUTEROL/IPRATROPIUM 3 ML NEB RESP TX SCH ×4 (00:10→18:54)
[2018-03-31 04:24] LABS: Basophils % 0.1 % (0.0-0.8); Hematocrit 35.3 VOL% (35.7-47.0); Hemoglobin 12.2 GM/DL (12.0-16.0); Immature Granulocytes % 0.5 %; Immature Granulocytes Absolute 0.05 #; Lymphocytes # 0.5 10*3/uL (1.4-4.0); Lymphocytes % 4.9 % (21.3-54.2); Mean Corpuscular HGB Conc 34.6 GM/DL (32-36); Mean Corpuscular Hemoglobin 29 PG (27-34); Mean Corpuscular Volume 83.8 FL (87-102); Mean Platelet Volume 9.9 FL (9.6-12.0); Monocytes # 0.1 10*3/uL (0.11-0.8); Neutrophils # 8.6 10*3/uL (1.4-7.4); Neutrophils % 93.5 % (38.7-73.9); Platelet Count 249 T/CUMM (130-400); Red Blood Count 4.21 MC/CUMM (3.8-5.5); Red Cell Distribution Width 13.6 % (9.3-17.3); White Blood Count 9.2 T/CUMM (4-12)
[2018-03-31 05:15] LABS: Lymphocytes 3 % (20-55); Segmented Neutrophils 96 % (50-85); Total Cells Counted 100
[2018-03-31 05:16] LABS: Ovalocytes Few; Platelet Estimate Normal
[2018-03-31] MEDS: LEVOTHYROXINE 100 MCG TABLET PO SCH (05:49)
[2018-03-31 05:51] LABS: Calcium 8.7 MG/DL (8.5-10.1); Potassium 3.7 MMOL/L (3.5-5.1)
[2018-03-31] MEDS: FLUCONAZOLE 200 MG TABLET PO SCH (09:03)
[2018-03-31] MEDS: ESTRADIOL 2 MG TABLET PO SCH (09:06)
[2018-03-31] MEDS: guaiFENesin/DM ER 600-30 MG TABLET PO SCH ×2 (09:06→20:53)
[2018-03-31] MEDS: ENOXAPARIN 40 MG/0.4 ML SYRINGE SUBCUT SCH (09:06)
[2018-03-31] MEDS: PANTOPRAZOLE 40 MG TABLET PO SCH (09:06)
[2018-03-31] MEDS: rOPINIRole 1 MG TABLET PO SCH ×3 (09:07→20:54)
[2018-03-31] MEDS: buPROPion SR 150 MG TABLET PO SCH ×2 (09:07→20:54)
[2018-03-31] MEDS: methylPREDNISolone SOD SUC 40 MG/1 ML VIAL IV SCH ×2 (09:09→20:56)
[2018-03-31] MEDS: LOVASTATIN 20 MG TABLET PO SCH (17:15)
[2018-03-31] MEDS: CHOLECALCIFEROL 1,000 UNIT TABLET PO SCH (20:53)
[2018-03-31] MEDS: CALCIUM (CARBONATE)/VITAMIN D 600 MG-400 UNIT TABLET PO SCH (20:53)
[2018-03-31] MEDS: ASCORBIC ACID 500 MG TABLET PO SCH (20:54)
[2018-03-31] MEDS ORDERED: PHYTONADIONE 100 MCG PO SCH (21:00)
[2018-04-01] MEDS: ALBUTEROL/IPRATROPIUM 3 ML NEB RESP TX SCH ×4 (00:21→19:02)
[2018-04-01 05:24] LABS: Basophils % 0.1 % (0.0-0.8); Hematocrit 33.2 VOL% (35.7-47.0); Hemoglobin 11.3 GM/DL (12.0-16.0); Immature Granulocytes % 0.6 %; Immature Granulocytes Absolute 0.06 #; Lymphocytes # 0.6 10*3/uL (1.4-4.0); Lymphocytes % 5.5 % (21.3-54.2); Mean Corpuscular Hemoglobin 29 PG (27-34); Mean Corpuscular Volume 85.6 FL (87-102); Mean Platelet Volume 9.8 FL (9.6-12.0); Monocytes # 0.3 10*3/uL (0.11-0.8); Monocytes % 2.5 % (1.7-12.7); Neutrophils # 9.5 10*3/uL (1.4-7.4); Neutrophils % 91.3 % (38.7-73.9); Platelet Count 262 T/CUMM (130-400); Red Blood Count 3.88 MC/CUMM (3.8-5.5); Red Cell Distribution Width 13.3 % (9.3-17.3); White Blood Count 10.4 T/CUMM (4-12)
[2018-04-01 05:47] LABS: Calcium 8.8 MG/DL (8.5-10.1); Osmolality,Calculated 271.4 MOS/KG (273-304); Potassium 3.8 MMOL/L (3.5-5.1)
[2018-04-01 05:59] LABS: Band Neutrophils 1 % (0-10); Hypochromasia 1+; Lymphocytes 3 % (20-55); Microcytosis Slight; Myelocytes 1 %; Segmented Neutrophils 92 % (50-85); Total Cells Counted 100
[2018-04-01 06:00] LABS: Platelet Estimate Normal
[2018-04-01] MEDS: LEVOTHYROXINE 100 MCG TABLET PO SCH (06:40)
[2018-04-01] MEDS: methylPREDNISolone SOD SUC 40 MG/1 ML VIAL IV SCH ×2 (09:21→21:10)
[2018-04-01] MEDS: guaiFENesin/DM ER 600-30 MG TABLET PO SCH ×2 (09:21→21:11)
[2018-04-01] MEDS: ENOXAPARIN 40 MG/0.4 ML SYRINGE SUBCUT SCH (09:21)
[2018-04-01] MEDS: FLUCONAZOLE 200 MG TABLET PO SCH (09:22)
[2018-04-01] MEDS: rOPINIRole 1 MG TABLET PO SCH ×3 (09:22→21:11)
[2018-04-01] MEDS: buPROPion SR 150 MG TABLET PO SCH ×2 (09:22→21:11)
[2018-04-01] MEDS: PANTOPRAZOLE 40 MG TABLET PO SCH (09:22)
[2018-04-01] MEDS: ESTRADIOL 2 MG TABLET PO SCH (09:26)
[2018-04-01] MEDS ORDERED: PHENOL 1.4% THROAT SPRAY 177 ML BOTTLE PO PRN (14:06)
[2018-04-01] MEDS: LOVASTATIN 20 MG TABLET PO SCH (18:00)
[2018-04-01] MEDS: CHOLECALCIFEROL 1,000 UNIT TABLET PO SCH (21:11)
[2018-04-01] MEDS: CALCIUM (CARBONATE)/VITAMIN D 600 MG-400 UNIT TABLET PO SCH (21:11)
[2018-04-01] MEDS: ASCORBIC ACID 500 MG TABLET PO SCH (21:11)
[2018-04-01] MEDS: LEVOFLOXACIN INJ 750 MG in PREMIX 1 EACH IV SCH (21:12)
[2018-04-02] MEDS: ALBUTEROL/IPRATROPIUM 3 ML NEB RESP TX SCH ×2 (00:20→06:53)
[2018-04-02] MEDS: LEVOTHYROXINE 100 MCG TABLET PO SCH (06:00)
[2018-04-02 07:32] VITALS: BP 142/74
[2018-04-02] MEDS ORDERED: predniSONE 20 MG TABLET PO SCH (09:00)
[2018-04-02] MEDS: ESTRADIOL 2 MG TABLET PO SCH (09:12)
[2018-04-02] MEDS: PANTOPRAZOLE 40 MG TABLET PO SCH (09:12)
[2018-04-02] MEDS: rOPINIRole 1 MG TABLET PO SCH (09:12)
[2018-04-02] MEDS: guaiFENesin/DM ER 600-30 MG TABLET PO SCH (09:12)
[2018-04-02] MEDS: buPROPion SR 150 MG TABLET PO SCH (09:12)
[2018-04-02] MEDS: ENOXAPARIN 40 MG/0.4 ML SYRINGE SUBCUT SCH (09:12)
[2018-04-02] MEDS: FLUCONAZOLE 200 MG TABLET PO SCH (09:12)
[2018-04-02] MEDS ORDERED: LEVOFLOXACIN INJ 750 MG in PREMIX 1 EACH IV SCH (21:00)
== END 2018-04-02 10:55 | disposition home or self-care (01) | DRG 194 ==
LOC: N.ED 16:17 → N.EDINP 20:24 → N.TELES 22:02
PROVIDERS: ADMIT Internal Medicine; ATTEND Internal Medicine